=== PATIENT | female | born 1935 | race Caucasian/White ===

== ENCOUNTER 2021-08-01 12:40 | Outpatient (REF) | payer MEDICARE, OTHER, SELFPAY ==
[2021-08-01 13:36] LABS: COVID-19 Test Negative (Negative)
== END 2021-08-01 12:41 | disposition home or self-care (01) ==
LOC: HO.LAB 12:40
PROVIDERS: PCP Internal Medicine; Visit Provider Internal Medicine
DX: Z20.822 Contact with and (suspected) exposure to COVID-19 (principal)
CPT/HCPCS: 36415; 87635; C9803

== ENCOUNTER 2022-05-20 16:11 | Inpatient (IN) | payer MEDICARE, OTHER, SELFPAY ==
[2022-05-20] VITALS (7 sets, daily range): BP systolic 125–140; BP diastolic 32–37; PULSE 66–74; RESP 20–94; TEMP 36.5–36.6; O2SAT 20–94; BMI 28.9
--- NOTE | ~2022-05-20 | XR_ITS ---
EXAMINATION: XR CHEST CLINICAL INFORMATION: Shortness of breath. COMPARISON: Chest radiograph 05/21/2022. TECHNIQUE: Frontal view of the chest was obtained. FINDINGS: A left pectoral dual-lead pacer is noted. The cardiac silhouette is grossly normal in size. Dense left base airspace opacification blunting of left costophrenic sulcus is noted. Right upper lobe airspace opacity and patchy right base airspace opacities are noted. No pneumothoraces. Diffuse osteopenia. XR/XR chest 1V IMPRESSION: *Multifocal airspace disease the lungs unchanged compared with 05/21/2022 suspicious for pneumonia. *Unchanged moderate left pleural effusion.
--- NOTE | ~2022-05-20 | US_ITS ---
EXAMINATION: ULTRASOUND THORACENTESIS CLINICAL INFORMATION: Left pleural effusion, status post thoracentesis. COMPARISON: None TECHNIQUE: Multiple 2-D grayscale and color Doppler ultrasound images of the left chest were obtained for thoracentesis. US/US thoracentesis FINDINGS/IMPRESSION: Multiloculated fluid is seen in the visualized inferior left pleural cavity. 30 mL of bloody fluid was drained from the left pleural cavity. Procedure performed bedside by Dr. Haywood fluid was sent to lab for cytology and cell count. Please refer to the procedure report for more detailed findings.
--- NOTE | ~2022-05-20 | XR_ITS ---
EXAMINATION: XR chest 1V CLINICAL INFORMATION: Reason for Exam post left thoracentesis COMPARISON: Chest radiograph 05/20/2022 TECHNIQUE: One view of the chest XR/XR chest 1V FINDINGS/IMPRESSION: * Moderate left pleural effusion similar to prior. No pneumothorax. * Patchy multifocal parenchymal airspace opacities and left basilar consolidation, which may reflect comminution of multifocal infection and left basilar atelectasis * Unchanged cardiomediastinal silhouette, with a left chest wall dual lead cardiac pacemaker in place.
--- NOTE | ~2022-05-20 | CT_ITS ---
EXAMINATION: CT CHEST WITHOUT CONTRAST CLINICAL INFORMATION: hypoxic, LLL opacity, effusion vs consolidation . COMPARISON: Chest x-ray today. TECHNIQUE: Multidetector volumetric imaging was performed from the thoracic inlet through the lung bases without contrast. Sagittal and coronal reformatted images were obtained on the technologist workstation. Soft tissue and lung algorithms evaluated. Thick slab MIP images were performed to increase nodule conspicuity. This CT examination was performed using dose optimization techniques as appropriate, variously including the following: *Automated exposure control *Adjustment of mA and/or kV according to patient size (this includes techniques or standardized protocols for targeted exams where dose is matched to indication/reason for exam; i.e. extremities or head) *Use of iterative reconstruction technique DLP: 285 mGy-cm. FINDINGS: LUNG: Patchy bilateral airspace disease is seen with more confluent airspace changes in the lateral aspect of the right upper lobe and in the dependent aspect of the left lower lobe. More patchy areas ranging from groundglass opacity to more dense consolidation seen bilaterally as well. In the acute setting infectious causes would be strongly favored. Central airways are grossly unremarkable. MEDIASTINUM: Vascular calcification within the aorta and coronary vessels. Lead tips overlying the right atrium and right ventricle noted from the left pectoral pacemaker. PERICARDIUM/PLEURA: Small moderate left-sided pleural effusion. No significant pericardial effusion. THYROID/VISUALIZED LOWER NECK: Unremarkable. CHEST WALL/AXILLA: Unremarkable. VISUALIZED UPPER ABDOMEN: Unremarkable. BONES: Multilevel degenerative and chronic appearing changes in the spine CT/CT chest wo con IMPRESSION: Patchy bilateral airspace disease ranging from groundglass opacities to more dense areas of consolidation with air bronchograms. In the acute setting infectious etiology would be favored. There is associated small to moderate left-sided pleural effusion as well.
--- NOTE | ~2022-05-20 | XR_ITS ---
EXAMINATION: XR CHEST CLINICAL INFORMATION: Hypoxic. COMPARISON: 06/04/2014 chest radiograph. TECHNIQUE: Frontal view of the chest was obtained. FINDINGS: Bilateral patchy infiltrates are seen with a moderate-sized left pleural effusion. The heart and mediastinal structures are unremarkable. A left sided pacemaker appears in good position. XR/XR chest 1V IMPRESSION: Moderate left pleural effusion. Bilateral patchy infiltrates are nonspecific and could be cardiogenic however an infectious/inflammatory process cannot be excluded. Correlate clinically.
--- NOTE | 2022-05-20 16:23 | ED_ITS ---
HPI - SOB/Dyspnea General Chief Complaint: General Medical Stated Complaint: Difficulty Breathing Time Seen by Provider: 05/20/22 16:23 Source: patient and EMS Limitations: no limitations History of Present Illness HPI Narrative: 87 y/o female with history of CLL acalbrutinib, AFib no longer on anticoagulation, CKD III, moderate aortic stenosis, asthma, glaucoma, depression/anxiety, sick sinus syndrome s/p PPM, HFpEF, CAD HTN, HLD who presents to the ER from home via EMS with reports of shortness of breath started yesterday. Patient was just admitted to a short-term rehab from May 02 to May 19 after admission at [facility] for recurrent left-sided pleural effusion requiring thoracentesis x2. When she was at the rehab facility she was positive for COVID. she developed some mild hypoxia requiring 2 L nasal cannula and chest x-ray showed recurrent left-sided pleural effusion. She was restarted on her oral Lasix with good affect and was able to be weaned off of oxygen before discharge. Family reports when she got home from the facility yesterday she was so weak she could not stand up and get to the bathroom. She was also short of breath. Her breathing continued to decline so EMS was called today. MD elicited complaint: shortness of breath Pertinent past history: congestive heart failure and other ( Recurrent left- sided pleural effusion) Onset (ago): day(s) Context: recent illness Timing: constant Severity: severe Exacerbating factors: nothing Relieving factors: oxygen Known history of: asthma and congestive heart failure Associated symptoms: denies other symptoms Treatment prior to arrival: oxygen Related Data Home oxygen amount: none Home Medications Medication Instructions Recorded Confirmed acalabrutinib 100 mg capsule 100 mg PO Q12H 05/20/22 05/20/22 acetaminophen 325 mg tablet 650 mg PO Q6H PRN FEVER/PAIN 05/20/22 05/20/22 albuterol sulfate 90 mcg/actuation 2 puff inhalation Q8H PRN 05/20/22 05/20/22 aerosol inhaler (ProAir HFA) Shortness Of Breath Or Wheezing amlodipine 10 mg tablet 10 mg PO DAILY 05/20/22 05/20/22 atorvastatin 20 mg tablet 20 mg PO DAILY 05/20/22 05/20/22 carvedilol 6.25 mg tablet 6.25 mg PO BID 05/20/22 05/20/22 clonidine 0.2 mg/24 hr weekly 1 patch transdermal MO@1000 05/20/22 05/20/22 transdermal patch escitalopram oxalate 10 mg tablet 10 mg PO DAILY 05/20/22 05/20/22 furosemide 40 mg tablet (Lasix) 40 mg PO DAILY 05/20/22 05/20/22 latanoprost 0.005 % eye drops 1 drp ophthalmic (eye) BEDTIME 05/20/22 05/20/22 losartan 100 mg tablet 100 mg PO DAILY 05/20/22 05/20/22 nystatin 100,000 unit/mL oral 500,000 unit PO QID 05/20/22 05/20/22 suspension sennosides 8.6 mg tablet (senna) 8.6 mg PO DAILY PRN Constipation 05/20/22 05/20/22 tiotropium bromide 18 mcg capsule 1 cap inhalation DAILY 05/20/22 05/20/22 with inhalation device (Spiriva with HandiHaler) trazodone 50 mg tablet 25 mg PO BEDTIME 05/20/22 05/20/22 Allergies Allergy/AdvReac Type Severity Reaction Status Date / Time lisinopril [LISINOPRIL] Allergy Severe HIVES AND Unverified 08/15/20 15:30 SWELLING shellfish derived Allergy Severe HIVES AND Unverified 08/15/20 15:30 [SHELLFISH DERIVED] SWELLING Review of Systems Review of Systems: Constitutional: No Fever, No Chills ENT/Mouth: No sore throat, No Rhinorrhea, No Swallowing Difficulty Eyes: No Eye Pain, No Swelling, No Redness Cardiovascular: No Chest Pain, + SOB, + Orthopnea, No Edema Respiratory: No Cough, No Sputum, + Wheezing, + dyspnea Gastrointestinal: No Nausea, No Vomiting, No Diarrhea, No abdominal Pain Genitourinary: No Dysuria, No Urinary Frequency, No Hematuria Musculoskeletal: No joint pain, No Myalgias Skin: No Skin Lesions, No rash Neuro: + Weakness, No Numbness, No Dizziness, No Headache Psych: +Anxiety/Panic, No Depression Heme/Lymph: No Bruising, No Lymphadenopathy Endocrine: No Polyuria, No Polydipsia PMFSH Social History Social History Advance Directives: Yes Advance Directives Information Provided: No Advance Directives on File: No Physical Exam Vital Signs: Vital Signs: Last Vital Signs Temp 97.7 F 05/20/22 18:17 Pulse 66 05/20/22 19:58 Resp 20 05/20/22 19:58 BP 130/37 L 05/20/22 19:58 Pulse Ox 94 05/20/22 19:58 O2 Del Method 05/20/22 19:58 O2 Flow Rate 81.3 05/20/22 19:58 Oxygen Flow Rate 15 05/20/22 16:20 BMI result Body Mass Index 28.9 Appearance: Alert elderly female sitting up in the stretcher on NRB mask. No acute distress. IQUGMIUT. Eyes: Pupils equal, round and reactive to light. ENT: Pharynx normal. Neck: Normal inspection. Neck supple. CVS: Normal heart rate and rhythm. Pulses normal. Respiratory: Mild respiratory distress with RR low 20s. Breath sounds normal coarse and diminished at left base Abdomen: Soft and nontender. +BS x4 Skin: Skin warm and dry. Normal skin color. Normal skin turgor. No rashes. Extremities: No lower extremity edema. Neuro: Oriented X 3. No motor deficit. No sensory deficit. Generalized weakne ss noted, nonfocal Course Course Course Narrative: 87 yo female with history of AFib not on anticoagulation, HFpEF, HTN, HLD, CLL, recent admission to [facility] for recurrent pleural effusion s/p thoracentesis x2 and dispo to short term rehab 05/02-05/19 where course was complicated by COVID and recurrent effusion managed with diuresis who presents with 2 days of worsening SOB, found to be hypoxic at home and requiring 100% NRB. lung sounds are extremely diminished and coarse on the left, concerning for recurrent pleural effusion. Will place on high-flow via nasal cannula verses CPAP if she to lerates. RT called to the bedside. She is DNR DNI which is confirmed with her family at the bedside. Reevaluation(s) Reevaluation #1: Patient tolerating CPAP of 5 with FiO2 50%. Her records from recent [facility] admission have been reviewed. She has a left- sided pleural effusion dating back to 2018 which is transudative in nature. She was seen by pulmonology at [facility] and determined not to be a candidate for a VATS and pleurodesis given her age and comorbidities. She was managed with diuresis. She went a few years without requiring thoracentesis. During her admission at [facility] the pleural fluid was bloody in nature, 1100 cc drained from the left pleural space. Decision was made to stop apixaban. No mention of the pleural fluid culture being positive for bacteria however [place] [address] so she was treated for possible pneumonia with 5 days of antibiotics, oral steroids and DuoNebs. Reevaluation #2: CXR with left sided pleural effusion and scattered patchy opacities. WBC 19.6. BNP 283 with sodium 129, possibly hypervolemic. Of note patient has a chronic leukocytosis due to her CLL, may not be infectious. Will get CT of the chest for further evaluation of the lung parenchyma and possible dense consolidations left base. Given her leukocytosis and recent admission will treat for Hcap with vanco and cefepime. Will also give her a dose of IV Lasix, albumin (alb 2.7) for her elevated BNP and to aid in oxygen weaning. No role for IV fluids at this time. Contraindicated with her respiratory status. She is hemodynamically stable. Reevaluation #3: Patient noted to be positive for COVID-19. She recently tested positive earlier this month, family thinks it may have been on the or 8th while at rehab. She is fully vaccinated x4 wtih [employer] vaccines. CT scan reviewed and bilateral opacities are noted, could be COVID related vs bacterial PNA vs atypical pulmonary edema. She also has recurrent left sided pleural effusion. Given the recurrence of her pleural effusion and hypoxia would benefit from another thoracentesis vs PleurEx catheter. Stable on 5 CPAP 50%, asking to come off. Transitioned to HFNC 70%, breathing comfortably. Stable to hold off on drainage until tomorrow. Additional Reevaluation(s): Patient's clarified and states she actually contracted COVID during her [facility] admission and NOT during her rehab stay. Discharge paperwork reviewed - she was incidentally found to be COVID positive on 04/30 during routine COVID checks. She is immunocompromised so it is possible to see her symptoms prolong 20 days after initial diagnosis. Spoke with Hospitalist who will come evaluate the patient for admisison. MDM - SOB/Dyspnea Medical Records Attestation: I reviewed the patient's medical records. Lab Data Attestation: I reviewed the patient's lab results. Result diagrams: 05/20/22 16:56 05/20/22 16:56 Labs: Lab Results 05/20/22 05/20/22 05/20/22 Range/Units 16:55 16:56 16:56 WBC 19.6 H (4.8-10.8) X10*3/uL RBC 3.36 L (4.20-5.50) X10*6/uL Hgb 9.7 L (12.0-16.0) g/dl Hct 28.8 L (37.0-47.0) % MCV 85.7 (80.0-98.0) fL MCH 28.9 (27.0-33.0) pg MCHC 33.7 (31.0-35.0) g/dl RDW 14.2 (11.0-16.0) % Plt Count 193 (160-400) X10*3/uL MPV 12.6 H (9.4-12.3) fL Immature Gran % (Auto) 0.8 H (0.0-0.4) % Neut % (Auto) 78.7 H (45-73) % Lymph % (Auto) 19.0 L (20-40) % [place] % (Auto) 1.4 L (2-11) % Eos % (Auto) 0.0 (0-4) % Baso % (Auto) 0.1 (0-2) % Lymph # (Auto) 3.7 (1.2-4.9) X10*3/uL [place] # (Auto) 0.3 (0.1-1.2) X10*3/uL Eos # (Auto) 0.0 (0.0-0.4) X10*3/uL Baso # (Auto) 0.0 (0.0-0.2) X10*3/uL Abs Immat Gran (auto) 0.16 H (0.00-0.03) X10*3/uL Absolute Neuts (auto) 15.4 H (2.0-8.3) x10*3/uL Absolute Nucleated RBC 0.000 (0.0-0.012) X10*3/uL Nucleated RBC % (auto) 0.0 (0.0-0.2) /100WBC PT 14.2 H (9.9-13.0) SEC INR 1.2 H (0.9-1.1) APTT 24.8 (24.1-38.0) SEC Sodium (135-145) mmol/L Potassium (3.3-5.1) mmol/L Chloride (96-108) mmol/L Carbon Dioxide (22-29) mmol/L Anion Gap (12-20) BUN (9-16) mg/dL Creatinine (0.5-1.4) mg/dL Estim Creat Clear Calc Estimated GFR Random Glucose (60-115) mg/dL Lactic Acid 1.8 (0.5-2.0) mmol/L Calcium (8.4-10.2) mg/dL Magnesium (1.6-2.6) mg/dL Total Bilirubin (0.0-1.0) mg/dL Direct Bilirubin (0.0-0.5) mg/dL AST (5-31) U/L ALT (0-31) U/L Alkaline Phosphatase (39-117) U/L Troponin I High Sens (<3.5-17.0) ng/L B-Natriuretic Peptide (<100) pg/mL Total Protein (6.5-8.0) g/dL Albumin (3.5-5.0) g/dL Procalcitonin ng/mL COVID-19 (STEPHANIE) (Negative) COVID-19 Clin Com 05/20/22 05/20/22 05/20/22 Range/Units 16:56 16:56 16:56 WBC (4.8-10.8) X10*3/uL RBC (4.20-5.50) X10*6/uL Hgb (12.0-16.0) g/dl Hct (37.0-47.0) % MCV (80.0-98.0) fL MCH (27.0-33.0) pg MCHC (31.0-35.0) g/dl RDW (11.0-16.0) % Plt Count (160-400) X10*3/uL MPV (9.4-12.3) fL Immature Gran % (Auto) (0.0-0.4) % Neut % (Auto) (45-73) % Lymph % (Auto) (20-40) % [place] % (Auto) (2-11) % Eos % (Auto) (0-4) % Baso % (Auto) (0-2) % Lymph # (Auto) (1.2-4.9) X10*3/uL [place] # (Auto) (0.1-1.2) X10*3/uL Eos # (Auto) (0.0-0.4) X10*3/uL Baso # (Auto) (0.0-0.2) X10*3/uL Abs Immat Gran (auto) (0.00-0.03) X10*3/uL Absolute Neuts (auto) (2.0-8.3) x10*3/uL Absolute Nucleated RBC (0.0-0.012) X10*3/uL Nucleated RBC % (auto) (0.0-0.2) /100WBC PT (9.9-13.0) SEC INR (0.9-1.1) APTT (24.1-38.0) SEC Sodium 129 L (135-145) mmol/L Potassium 4.0 (3.3-5.1) mmol/L Chloride 93 L (96-108) mmol/L Carbon Dioxide 25 (22-29) mmol/L Anion Gap 15 (12-20) BUN 42 H (9-16) mg/dL Creatinine 1.23 (0.5-1.4) mg/dL Estim Creat Clear Calc 26.9 Estimated GFR 41 Random Glucose 268 H (60-115) mg/dL Lactic Acid (0.5-2.0) mmol/L Calcium 7.9 L (8.4-10.2) mg/dL Magnesium 2.1 (1.6-2.6) mg/dL Total Bilirubin 0.9 (0.0-1.0) mg/dL Direct Bilirubin 0.4 (0.0-0.5) mg/dL AST 31 (5-31) U/L ALT 73 H (0-31) U/L Alkaline Phosphatase 104 (39-117) U/L Troponin I High Sens 35.1 H (<3.5-17.0) ng/L B-Natriuretic Peptide 283 H (<100) pg/mL Total Protein 4.9 L (6.5-8.0) g/dL Albumin 2.7 L (3.5-5.0) g/dL Procalcitonin 0.31 ng/mL COVID-19 (STEPHANIE) (Negative) COVID-19 Clin Com 05/20/22 05/20/22 Range/Units 16:57 20:27 WBC (4.8-10.8) X10*3/uL RBC (4.20-5.50) X10*6/uL Hgb (12.0-16.0) g/dl Hct (37.0-47.0) % MCV (80.0-98.0) fL MCH (27.0-33.0) pg MCHC (31.0-35.0) g/dl RDW (11.0-16.0) % Plt Count (160-400) X10*3/uL MPV (9.4-12.3) fL Immature Gran % (Auto) (0.0-0.4) % Neut % (Auto) (45-73) % Lymph % (Auto) (20-40) % [place] % (Auto) (2-11) % Eos % (Auto) (0-4) % Baso % (Auto) (0-2) % Lymph # (Auto) (1.2-4.9) X10*3/uL [place] # (Auto) (0.1-1.2) X10*3/uL Eos # (Auto) (0.0-0.4) X10*3/uL Baso # (Auto) (0.0-0.2) X10*3/uL Abs Immat Gran (auto) (0.00-0.03) X10*3/uL Absolute Neuts (auto) (2.0-8.3) x10*3/uL Absolute Nucleated RBC (0.0-0.012) X10*3/uL Nucleated RBC % (auto) (0.0-0.2) /100WBC PT (9.9-13.0) SEC INR (0.9-1.1) APTT (24.1-38.0) SEC Sodium (135-145) mmol/L Potassium (3.3-5.1) mmol/L Chloride (96-108) mmol/L Carbon Dioxide (22-29) mmol/L Anion Gap (12-20) BUN (9-16) mg/dL Creatinine (0.5-1.4) mg/dL Estim Creat Clear Calc Estimated GFR Random Glucose (60-115) mg/dL Lactic Acid (0.5-2.0) mmol/L Calcium (8.4-10.2) mg/dL Magnesium (1.6-2.6) mg/dL Total Bilirubin (0.0-1.0) mg/dL Direct Bilirubin (0.0-0.5) mg/dL AST (5-31) U/L ALT (0-31) U/L Alkaline Phosphatase (39-117) U/L Troponin I High Sens 32.3 H (<3.5-17.0) ng/L B-Natriuretic Peptide (<100) pg/mL Total Protein (6.5-8.0) g/dL Albumin (3.5-5.0) g/dL Procalcitonin ng/mL COVID-19 (STEPHANIE) Positive A (Negative) COVID-19 Clin Com See Note ECG Data Attestation: I personally reviewed and interpreted this ECG as follows: ECG interpretation date: 05/20/22 ECG interpretation time: 19:58 Interpretation: Sinus rhythm with premature atrial complexes, heart rate 61 beats per minute, normal [place] interval, no ST segment elevations. ST and T-wave abnormality in V5- V6 Critical Care Time Critical Care Time Critical Care Time: Yes Total Critical Care Time: 45 Attestation: I have personally provided critical care time exclusive of time spent on separately billable procedures. Time includes review of lab data, radiology results, discussion with consultants, and monitoring for potential decompensation. Intervention performed as documented. Discharge Plan Discharge Clinical Impression: Acute respiratory failure with hypoxia, Recurrent left pleural effusion, COVID- 19 Patient Disposition: Admitted As Inpatient
--- NOTE | 2022-05-20 16:29 | ECG_ITS ---
Test Reason : DYSPNEA Blood Pressure : / mmHG Vent. Rate : 061 BPM Atrial Rate : 061 BPM P-R Int : 170 ms QRS Dur : 084 ms QT Int : 438 ms P-R-T Axes : 013 018 134 degrees QTc Int : 440 ms Sinus rhythm with Premature atrial complexes ST & T wave abnormality, consider lateral ischemia Abnormal ECG When compared with ECG of 04-JUN-2014 02:17, Premature atrial complexes are now Present T wave inversion now evident in Lateral leads Referred By: Chanel Carty Electronically Signed By:ANITA DOMINGUEZ MD
[2022-05-20 17:05] LABS: MANUAL DIFF FLAG NO
[2022-05-20 17:09] LABS: Basophils Percent Auto 0.1 % (0-2); Hematocrit 28.8 % (37.0-47.0); Hemoglobin 9.7 g/dl (12.0-16.0); Imm Gran Abs Auto 0.16 X10*3/uL (0.00-0.03); Imm Gran Pct Auto 0.8 % (0.0-0.4); Lymphocytes Absolute Auto 3.7 X10*3/uL (1.2-4.9); Mean Corpuscular HGB Conc 33.7 g/dl (31.0-35.0); Mean Corpuscular Hemoglobin 28.9 pg (27.0-33.0); Mean Corpuscular Volume 85.7 fL (80.0-98.0); Mean Platelet Volume 12.6 fL (9.4-12.3); Monocytes Absolute Auto 0.3 X10*3/uL (0.1-1.2); Monocytes Percent Auto 1.4 % (2-11); Neutrophils Absolute Auto 15.4 x10*3/uL (2.0-8.3); Neutrophils Percent Auto 78.7 % (45-73); Platelet Count 193 X10*3/uL (160-400); Red Blood Count 3.36 X10*6/uL (4.20-5.50); Red Cell Distribution Width 14.2 % (11.0-16.0); White Blood Count 19.6 X10*3/uL (4.8-10.8)
[2022-05-20 17:12] LABS: INTERNATIONAL NORM RATIO 1.2 (0.9-1.1); Prothrombin Time 14.2 SEC (9.9-13.0)
[2022-05-20 17:14] LABS: COVID-19 Test Positive (Negative); IDNOW Serial# 16C4AD1C
[2022-05-20 17:15] LABS: Partial Thromboplastin Time 24.8 SEC (24.1-38.0)
[2022-05-20 17:21] LABS: Lactic Acid 1.8 mmol/L (0.5-2.0)
[2022-05-20 17:26] LABS: Alanine Aminotransferase 73 U/L (0-31); Albumin Level 2.7 g/dL (3.5-5.0); Alkaline Phosphatase 104 U/L (39-117); Anion Gap 15 (12-20); Aspartate Amino Transferase 31 U/L (5-31); Bilirubin Direct 0.4 mg/dL (0.0-0.5); Bilirubin Total 0.9 mg/dL (0.0-1.0); Blood Urea Nitrogen 42 mg/dL (9-16); Calcium 7.9 mg/dL (8.4-10.2); Carbon Dioxide 25 mmol/L (22-29); Chloride 93 mmol/L (96-108); Creatinine Clr Calc Pharmacy 26.9; Estimated Glomerular Filt Rate 41; Glucose Random 268 mg/dL (60-115); Magnesium 2.1 mg/dL (1.6-2.6); Sodium 129 mmol/L (135-145); Total Protein 4.9 g/dL (6.5-8.0)
[2022-05-20 17:30] LABS: B Type Natriuretic Peptide 283 pg/mL (<100); Troponin-I High Sensitivity 35.1 ng/L (<3.5-17.0)
--- NOTE | 2022-05-20 17:39 | PHA.MEDREC ---
MED REC COMPLETE, NO ISSUES Pharmacy Consult ? Medication Reconciliation Pharmacy has completed the medication reconciliation.
[2022-05-20] MEDS: cefEPime HCl 2 GM in 0.9 % Sodium Chloride 50 ML IV (17:52)
[2022-05-20] MEDS: vancomycin HCL 1,000 MG, vancomycin HCL 750 MG in 0.9 % Sodium Chloride 500 ML 267.5 MG IV (17:55)
--- NOTE | 2022-05-20 18:32 | PC.NURSE ---
pt came n with respiratory distress xray showed consolidation on left lung. Pt placed on cpap, waiting on labs and pt pending admission
[2022-05-20] MEDS: methylPREDNISolone Sod Succ 40 MG/ML VIAL IVPUSH (19:38)
[2022-05-20] MEDS: Furosemide 40 MG/4 ML VIAL IVPUSH (19:38)
[2022-05-20] MEDS: Albumin Human 25 % 100 ML IV (19:57)
[2022-05-20 20:42] LABS: Procalcitonin 0.31 ng/mL
[2022-05-20 20:54] LABS: Troponin-I High Sensitivity 32.3 ng/L (<3.5-17.0)
--- NOTE | 2022-05-20 21:27 | MHC.CM.PN ---
Received [facility] progress note from [facility]. Was d/c from [facility] to [facility], then home. [facility] had first visit today. Pt very SOB. Sent to [facility] [place] [facility]. Pending admission. CM to follow for d/c needs.
--- NOTE | 2022-05-20 21:53 | P.HPHOSP_ITS ---
History of Present Illness Date of Service: 05/20/22 Chief Complaint: Shortness of breath 87-year-old female with a past medical history of hypertension, hyperlipidemia, CAD, CHF-diastolic, AFib-not on anticoagulation, SSS s/p pacemaker, moderate aortic stenosis, CKD stage 3, CLL on Acalbrutinib, anxiety, depression, asthma, recent admission to the [facility], [place] in March of 2022 for hemorrhagic pleural effusion-status post therapeutic tap; presented to the hospital today with a chief complaint of shortness of breath. Most of the history obtained from the patient and patient's family at bedside. Reportedly patient had an admission in March at [facility], [place] for pleural effusion which was found to be hemorrhagic status post 1 L of pleural tap; also noted to be COVID-19 positive; patient was subsequently discharged to the rehab and from the rehab patient was discharged home yesterday. Since she came home yesterday patient has been having shortness of breath which has been gradually worsening. Also complaining of cough with yellow sputum production. Subsequently EMS was called in today and in the EMS had patient was noted to be saturating 70%; placed on supplemental oxygen and brought to the ER for further evaluation. Denies any chest pain or palpitations. Denies any nausea vomiting or diarrhea. Review of all other systems is negative except mentioned above ER course: Per ER team patient on presentation noted to be in mild respiratory distress; placed on CPAP at low positive pressures. Subsequently patient was transitioned to high flow nasal cannula; patient was breathing in comfortably and significantly improved respiratory status. CT chest showed bilateral pulmonary opacities; also noted to have moderate right pleural effusion. Also mentioned that less concern for hemorrhagic bleed as patient's hemoglobin was noted to be 10.0 when she left [facility] [place] and today her hemoglobin noted to be 9.7. Also mentioned patient has had discussions for pleurodesis at [facility] [place] but procedure was held given comorbidities. PMFSH Pertinent family history: Reviewed Social History Advance Directives: Yes Advance Directives Information Provided: No Advance Directives on File: No Meds Allergies Allergy/AdvReac Type Severity Reaction Status Date / Time lisinopril [LISINOPRIL] Allergy Severe HIVES AND Unverified 08/15/20 15:30 SWELLING shellfish derived Allergy Severe HIVES AND Unverified 08/15/20 15:30 [SHELLFISH DERIVED] SWELLING Active Medications: Current Medications Acetaminophen (Acetaminophen 325 Mg Tablet) 650 mg PO Q6H PRN PRN Reason: Pain, Mild (Pain Scale 1-3) Dexamethasone Sodium Phosphate (Dexamethasone Sod Phosphate 4 Mg/Ml Vial) 6 mg IVPUSH DAILY [facility] Vancomycin HCl 1,000 mg/ (Sodium Chloride) 270 mls @ 270 mls/hr IV Q12H [facility] Piperacillin Sod/Tazobactam (Sod 3.375 gm/ Sodium Chloride) 50 mls @ 100 mls/hr IV Q6H [facility] Melatonin (Melatonin 3 Mg Tablet) 6 mg PO BEDTIME PRN PRN Reason: Insomnia Morphine Sulfate (Morphine Sulfate 4 Mg/Ml Cartridge) 1 mg IVPUSH Q4H PRN; Protocol PRN Reason: Pain, SOB Pharmacy Consult (Consult Rx Perform Med Rec) 1 each MISCELLANE ONCE PRN PRN Reason: Consult order Pharmacy Consult (Consult Rx Vancomycin Dosing) 1 each MISCELLANE DAILY PRN PRN Reason: Consult order Senna (Sennosides 8.6 Mg Tablet) 17.2 mg PO BEDTIME PRN PRN Reason: Constipation Sodium Chloride (0.9 % Sodium Chloride Flush 3 Ml Syringe) 3 ml IVFLUSH QSHIFT [facility] Home Medications Medication Instructions Recorded Confirmed Last Taken Type acalabrutinib 100 mg capsule 100 mg PO Q12H 05/20/22 05/20/22 Unknown History acetaminophen 325 mg tablet 650 mg PO Q6H PRN FEVER/PAIN 05/20/22 05/20/22 Unknown History albuterol sulfate 90 mcg/actuation 2 puff inhalation Q8H PRN 05/20/22 05/20/22 U nknown History aerosol inhaler (ProAir HFA) Shortness Of Breath Or Wheezing amlodipine 10 mg tablet 10 mg PO DAILY 05/20/22 05/20/22 Unknown History atorvastatin 20 mg tablet 20 mg PO DAILY 05/20/22 05/20/22 Unknown History carvedilol 6.25 mg tablet 6.25 mg PO BID 05/20/22 05/20/22 Unknown History clonidine 0.2 mg/24 hr weekly 1 patch transdermal MO@1000 05/20/22 05/20/22 Unknown History transdermal patch escitalopram oxalate 10 mg tablet 10 mg PO DAILY 05/20/22 05/20/22 Unknown History furosemide 40 mg tablet (Lasix) 40 mg PO DAILY 05/20/22 05/20/22 Unknown History latanoprost 0.005 % eye drops 1 drp ophthalmic (eye) BEDTIME 05/20/22 05/20/22 Unknown History losartan 100 mg tablet 100 mg PO DAILY 05/20/22 05/20/22 Unknown History nystatin 100,000 unit/mL oral 500,000 unit PO QID 05/20/22 05/20/22 Unknown History suspension sennosides 8.6 mg tablet (senna) 8.6 mg PO DAILY PRN Constipation 05/20/22 05/20/22 Unknown History tiotropium bromide 18 mcg capsule 1 cap inhalation DAILY 05/20/22 05/20/22 Unknown History with inhalation device (Spiriva with HandiHaler) trazodone 50 mg tablet 25 mg PO BEDTIME 05/20/22 05/20/22 Unknown History Physical Exam Vital Signs and Narrative: Vital Signs: Last Vital Signs Temp 97.7 F 05/20/22 18:17 Pulse 66 05/20/22 19:58 Resp 20 05/20/22 19:58 BP 130/37 L 05/20/22 19:58 Pulse Ox 94 05/20/22 19:58 O2 Del Method 05/20/22 19:58 O2 Flow Rate 81.3 05/20/22 19:58 Oxygen Flow Rate 15 05/20/22 16:20 BMI result Body Mass Index 28.9 Gen: Appears be in no acute distress. Able to speak in full sentences. On supplemental oxygen. HEENT: NCAT, Moist mucosa. Pulmonary: Coarse breath sounds; CVS: Normal S1-S2; murmur present Abdomen: BS+, Soft, Nontender Extremities: Warm well perfused Neuro: Alert and awake. Moves all extremities equally. Results Labs CBC and Chem 7: 05/20/22 16:56 05/20/22 16:56 Labs: Laboratory Results - last 24 hr 05/20/22 05/20/22 05/20/22 16:55 16:56 16:56 MCV 85.7 MCH 28.9 MCHC 33.7 RDW 14.2 Plt Count 193 MPV 12.6 H Immature Gran % (Auto) 0.8 H Neut % (Auto) 78.7 H Lymph % (Auto) 19.0 L Carver % (Auto) 1.4 L Eos % (Auto) 0.0 Baso % (Auto) 0.1 Lymph # (Auto) 3.7 Carver # (Auto) 0.3 Eos # (Auto) 0.0 Baso # (Auto) 0.0 Abs Immat Gran (auto) 0.16 H Absolute Neuts (auto) 15.4 H Absolute Nucleated RBC 0.000 Nucleated RBC % (auto) 0.0 PT 14.2 H INR 1.2 H APTT 24.8 Anion Gap Estim Creat Clear Calc Estimated GFR Random Glucose Lactic Acid 1.8 Calcium Magnesium Total Bilirubin Direct Bilirubin AST ALT Alkaline Phosphatase Troponin I High Sens B-Natriuretic Peptide Total Protein Albumin Procalcitonin COVID-19 (STEPHANIE) COVID-19 Clin Com 05/20/22 05/20/22 05/20/22 16:56 16:56 16:56 MCV MCH MCHC RDW Plt Count MPV Immature Gran % (Auto) Neut % (Auto) Lymph % (Auto) Carver % (Auto) Eos % (Auto) Baso % (Auto) Lymph # (Auto) Carver # (Auto) Eos # (Auto) Baso # (Auto) Abs Immat Gran (auto) Absolute Neuts (auto) Absolute Nucleated RBC Nucleated RBC % (auto) PT INR APTT Anion Gap 15 Estim Creat Clear Calc 26.9 Estimated GFR 41 Random Glucose 268 H Lactic Acid Calcium 7.9 L Magnesium 2.1 Total Bilirubin 0.9 Direct Bilirubin 0.4 AST 31 ALT 73 H Alkaline Phosphatase 104 Troponin I High Sens 35.1 H B-Natriuretic Peptide 283 H Total Protein 4.9 L Albumin 2.7 L Procalcitonin 0.31 COVID-19 (STEPHANIE) COVID-19 Clin Com 05/20/22 05/20/22 16:57 20:27 MCV MCH MCHC RDW Plt Count MPV Immature Gran % (Auto) Neut % (Auto) Lymph % (Auto) Carver % (Auto) Eos % (Auto) Baso % (Auto) Lymph # (Auto) Carver # (Auto) Eos # (Auto) Baso # (Auto) Abs Immat Gran (auto) Absolute Neuts (auto) Absolute Nucleated RBC Nucleated RBC % (auto) PT INR APTT Anion Gap Estim Creat Clear Calc Estimated GFR Random Glucose Lactic Acid Calcium Magnesium Total Bilirubin Direct Bilirubin AST ALT Alkaline Phosphatase Troponin I High Sens 32.3 H B-Natriuretic Peptide Total Protein Albumin Procalcitonin COVID-19 (STEPHANIE) Positive A COVID-19 Clin Com See Note Imaging Radiologist's Impressions: Impressions Chest X-Ray 05/20/22 17:22 IMPRESSION: Moderate left pleural effusion. Bilateral patchy infiltrates are nonspecific and could be cardiogenic however an infectious/inflammatory process cannot be excluded. Correlate clinically. Chest CT 05/20/22 17:55 IMPRESSION: Patchy bilateral airspace disease ranging from groundglass opacities to more dense areas of consolidation with air bronchograms. In the acute setting infectious etiology would be favored. There is associated small to moderate left-sided pleural effusion as well. Assessment and Plan (1) Acute respiratory failure with hypoxia: Status: Acute (2) Recurrent left pleural effusion: Status: Acute (3) COVID-19: Status: Acute Plan 87-year-old female with a past medical history of hypertension, hyperlipidemia, CAD, CHF-diastolic, AFib-not on anticoagulation, SSS s/p pacemaker, moderate aortic stenosis, CKD stage 3, CLL on Acalbrutinib, anxiety, depression, asthma, recent admission to the [facility] [place] in March of 2022 for hemorrhagic pleural effusion-status post therapeutic tap; presented to the hospital today with a chief complaint of shortness of breath/hypoxia/COVID-19 positive. Admitted for following Acute hypoxic respiratory failure: In the setting of COVID-19 pneumonia/moderate pleural effusion. Patient was briefly on CPAP on presentation. Currently transitioned to high-flow nasal cannula. Currently not in respiratory distress. Supportive care. COVID-19 pneumonia: Patient is COVID-19 vaccinated with Pfizer vaccine. Current CT scan showed patchy opacities. Will give the patient on Decadron 6 mg IV daily Continue IV vancomycin and Zosyn Id consult for further recommendations Moderate pleural effusion: Recurrent. Patient had recent admission to the [facility] [place] for pleural effusion status post therapeutic tap-obtained 1 L of bloody tap. IR consult was placed. Pulmonology follow-up Patient received IV Lasix in the ER. History of diastolic CHF: Continue home Lasix. History of hypertension: Patient blood pressure currently on the soft side. Hold home losartan, amlodipine. Reduced home carvedilol to 3.125 mg b.i.d. with holding parameters History of anxiety/depression: Continue home clonidine/escitalopram History of glaucoma: Continue home latanoprost History of CLL: Continue home Acalabrutinib. History of AFib: Patient currently not on anticoagulation. Recently discon tinued at [facility] [place] given bloody pleural effusion. DVT prophylaxis: SCD boots. Avoiding pharmacologic agent for now, given concerns for recent hemorrhagic pleural effusion. Code status: DNR/DNI. Confirmed with the patient's family at bedside. Quality Stroke Does the patient have a stroke diagnosis?: No VTE Prior VTE?: No VTE Risk Level:: Medical - moderate - high VTE Device Contraindication: N/A - Device Ordered VTE Drug Contraindication: Treatment Not Indicated
--- NOTE | 2022-05-20 22:18 | HE.PHANOTE ---
Vanco 1750 mg given in ED, following with at least one dose of 1 gm q24h to bring auc >500, pending random trough-dose to be adjust if needed
[2022-05-21] VITALS (12 sets, daily range): BP systolic 118–155; BP diastolic 42–47; PULSE 65–97; RESP 16–25; TEMP 36.1–36.8; O2SAT 84–94
[2022-05-21] MEDS: 0.9 % Sodium Chloride Flush 3 ML SYRINGE IVFLUSH ×2 (00:18→23:11)
[2022-05-21] MEDS: Piperacillin Sodium/Tazobactam 2.25 GM in 0.9 % Sodium Chloride 50 ML IV ×5 (00:18→23:11)
--- NOTE | 2022-05-21 05:08 | PC.NURSE ---
pt intermittently sleeping. high flow NC increased by respiratory. pt yelling out that she does not want to be alone and she want to get out of here. pt reassured with minimal effect.
[2022-05-21 05:10] LABS: Basophils Percent Auto 0.1 % (0-2); Hemoglobin 9.1 g/dl (12.0-16.0); Imm Gran Abs Auto 0.12 X10*3/uL (0.00-0.03); Imm Gran Pct Auto 0.7 % (0.0-0.4); Lymphocytes Absolute Auto 2.4 X10*3/uL (1.2-4.9); Lymphocytes Percent Auto 14.1 % (20-40); MANUAL DIFF FLAG SCAN; Mean Corpuscular HGB Conc 33.7 g/dl (31.0-35.0); Mean Corpuscular Hemoglobin 28.8 pg (27.0-33.0); Mean Corpuscular Volume 85.4 fL (80.0-98.0); Mean Platelet Volume 12.5 fL (9.4-12.3); Monocytes Absolute Auto 0.2 X10*3/uL (0.1-1.2); Monocytes Percent Auto 0.9 % (2-11); Neutrophils Absolute Auto 14.2 x10*3/uL (2.0-8.3); Neutrophils Percent Auto 84.2 % (45-73); Platelet Count 172 X10*3/uL (160-400); Red Blood Count 3.16 X10*6/uL (4.20-5.50); Red Cell Distribution Width 14.2 % (11.0-16.0); SCAN SMEAR FLAG 1; White Blood Count 16.9 X10*3/uL (4.8-10.8)
[2022-05-21 05:27] LABS: Anion Gap 16 (12-20); Blood Urea Nitrogen 40 mg/dL (9-16); Carbon Dioxide 23 mmol/L (22-29); Chloride 98 mmol/L (96-108); Creatinine Clr Calc Pharmacy 29.5; Estimated Glomerular Filt Rate 46; Glucose Random 286 mg/dL (60-115); Potassium 4.1 mmol/L (3.3-5.1); Sodium 133 mmol/L (135-145)
[2022-05-21 05:37] LABS: SLIDE REVIEW VERIFIED
--- NOTE | 2022-05-21 07:52 | HE.PHANOTE ---
Vancomycin Dosing Addendum Patient received a loading dose of 1750mg 05/20/22. Maintenance dose is 1000mg Q24. We will stick with current regimen as patients renal function has not changed since yesterday. Random level in for 05/22/2022 @1600. Predicted AUC 533mg/L/hr
[2022-05-21] MEDS: dexAMETHasone sod phosphate 4 MG/ML VIAL 6 MG IVPUSH (09:02)
[2022-05-21] MEDS: Morphine Sulfate 4 MG/ML CARTRIDGE 1 MG IVPUSH ×2 (09:03→19:16)
[2022-05-21] MEDS: carvediloL 3.125 MG TABLET PO ×2 (09:08→20:46)
[2022-05-21] MEDS: Atorvastatin Calcium 20 MG TABLET PO (09:08)
[2022-05-21] MEDS: Furosemide 40 MG TABLET PO (09:08)
--- NOTE | 2022-05-21 09:52 | PM.CNPUL ---
History of Present Illness History of Present Illness Consult date: 05/21/22 Reason for consult: hypoxemia and pleural effusion Chief complaint: Acute Hypoxic respiratory failure Narrative: I was us to see this patient for pulmonary consult, and advised. The patient is not able to give any clear information, except that she is short of breath. Most of the information is obtained from the medical records. She is a 87 years old female in known case of multiple medical problems, including CLL. Being treated chronically with acalabrutinib , hypertension, atrial fibrillation, Sick sinus syndrome, has demand pacemaker, coronary artery disease aortic stenosis chronic kidney disease chronic anxiety and depression and most likely has some degree of chronic obstructive pulmonary disease. It is reported that in March of this year she was admitted at [facility], tested positive for COVID-19 had a large pleural effusion on the left side, which was drained and found to be hemorrhagic. Patient spent says a few weeks at a rehab facility. Discharge home just 1 day earlier and then brought to the emergency room over here because of increased shortness of breath. Fever or chills not reported. Should be noted that patient is not on anticoagulation. Arrival to the emergency room patient was quite hypoxemic, she is requiring high-flow O2. Chest x-ray and CT scan of the chest are grossly abnormal. Review of Systems Review of Systems: Yes Unobtainable due to mental condition Meds Allergies Allergy/AdvReac Type Severity Reaction Status Date / Time lisinopril [LISINOPRIL] Allergy Severe HIVES AND Unverified 08/15/20 15:30 SWELLING shellfish derived Allergy Severe HIVES AND Unverified 08/15/20 15:30 [SHELLFISH DERIVED] SWELLING Active Medications: Current Medications Acetaminophen (Acetaminophen 325 Mg Tablet) 650 mg PO Q6H PRN PRN Reason: Pain, Mild (Pain Scale 1-3) Albuterol Sulfate (Albuterol Sulfate 90 Mcg 8 Gm Inhaler) 2 puff INHALE Q8H PRN PRN Reason: Shortness Of Breath Or Wheezing Atorvastatin Calcium (Atorvastatin Calcium 20 Mg Tablet) 20 mg PO DAILY [facility] Last Admin: 05/21/22 09:08 Dose: 20 mg Carvedilol (Carvedilol 3.125 Mg Tablet) 3.125 mg PO BID [facility]; Protocol Last Admin: 05/21/22 09:08 Dose: 3.125 mg Clonidine (Clonidine 0.2 Mg Patch.Tdwk) 0.2 mg TRANSDERMA MO@1000 [facility]; Protocol Dexamethasone Sodium Phosphate (Dexamethasone Sod Phosphate 4 Mg/Ml Vial) 6 mg IVPUSH DAILY [facility] Last Admin: 05/21/22 09:02 Dose: 6 mg Escitalopram Oxalate (Escitalopram Oxalate 10 Mg Tablet) 10 mg PO DAILY [facility] Furosemide (Furosemide 40 Mg Tablet) 40 mg PO DAILY [facility]; Protocol Last Admin: 05/21/22 09:08 Dose: 40 mg Vancomycin HCl 1,000 mg/ (Sodium Chloride) 270 mls @ 270 mls/hr IV Q24H [facility] Piperacillin Sod/Tazobactam (Sod 2.25 gm/ Sodium Chloride) 50 mls @ 100 mls/hr IV Q6H [facility] Last Infusion: 05/21/22 05:46 Dose: Infused Latanoprost (Latanoprost 0.005 % Ophth Silvia 2.5 Ml Drops) 1 drop EYE-BOTH BEDTIME [facility] Losartan Potassium (Losartan Potassium 50 Mg Tablet) 100 mg PO DAILY [facility]; Protocol Melatonin (Melatonin 3 Mg Tablet) 6 mg PO BEDTIME PRN PRN Reason: Insomnia Morphine Sulfate (Morphine Sulfate 4 Mg/Ml Cartridge) 1 mg IVPUSH Q4H PRN; Protocol PRN Reason: Pain, SOB Last Admin: 05/21/22 09:03 Dose: 1 mg Non-Formulary Medication (Acalabrutinib) 100 mg PO Q12H [facility] Nystatin (Nystatin Oral Susp 500,000 Unit/5 Ml Oral.Susp) 500,000 unit PO QID [facility]; Protocol Last Admin: 05/21/22 09:20 Dose: Not Given Pharmacy Consult (Consult Rx Perform Med Rec) 1 each MISCELLANE ONCE PRN PRN Reason: Consult order Pharmacy Consult (Consult Rx Vancomycin Dosing) 1 each MISCELLANE DAILY PRN PRN Reason: Consult order Senna (Sennosides 8.6 Mg Tablet) 17.2 mg PO BEDTIME PRN PRN Reason: Constipation Senna (Sennosides 8.6 Mg Tablet) 8.6 mg PO DAILY PRN PRN Reason: Constipation Sodium Chloride (0.9 % Sodium Chloride Flush 3 Ml Syringe) 3 ml IVFLUSH QSHIFT [facility] Last Admin: 05/21/22 09:20 Dose: Not Given Tiotropium [place]ayer (Tiotropium [place] 18 Mcg Cap.W.Dev) 1 puff INHALE RDAILY [facility] Last Admin: 05/21/22 08:23 Dose: Not Given Trazodone HCl (Trazodone Hcl 25 Mg Halftab) 25 mg PO BEDTIME [facility] Home Medications Medication Instructions Recorded Confirmed Last Taken Type acalabrutinib 100 mg capsule 100 mg PO Q12H 05/20/22 05/20/22 Unknown History acetaminophen 325 mg tablet 650 mg PO Q6H PRN FEVER/PAIN 05/20/22 05/20/22 Unknown History albuterol sulfate 90 mcg/actuation 2 puff inhalation Q8H PRN 05/20/22 05/20/22 Unknown History aerosol inhaler (ProAir HFA) Shortness Of Breath Or Wheezing amlodipine 10 mg tablet 10 mg PO DAILY 05/20/22 05/20/22 Unknown History atorvastatin 20 mg tablet 20 mg PO DAILY 05/20/22 05/20/22 Unknown History carvedilol 6.25 mg tablet 6.25 mg PO BID 05/20/22 05/20/22 Unknown History clonidine 0.2 mg/24 hr weekly 1 patch transdermal MO@1000 05/20/22 05/20/22 Unknown History transdermal patch escitalopram oxalate 10 mg tablet 10 mg PO DAILY 05/20/22 05/20/22 Unknown History furosemide 40 mg tablet (Lasix) 40 mg PO DAILY 05/20/22 05/20/22 Unknown History latanoprost 0.005 % eye drops 1 drp ophthalmic (eye) BEDTIME 05/20/22 05/20/22 Unknown History losartan 100 mg tablet 100 mg PO DAILY 05/20/22 05/20/22 Unknown History nystatin 100,000 unit/mL oral 500,000 unit PO QID 05/20/22 05/20/22 Unknown History suspension sennosides 8.6 mg tablet (senna) 8.6 mg PO DAILY PRN Constipation 05/20/22 05/20/22 Unknown History tiotropium bromide 18 mcg capsule 1 cap inhalation DAILY 05/20/22 05/20/22 Unknown History with inhalation device (Spiriva with HandiHaler) trazodone 50 mg tablet 25 mg PO BEDTIME 05/20/22 05/20/22 Unknown History Physical Exam Vital Signs: Vital Signs: Last Vital Signs Temp 97.0 F 05/21/22 06:23 Pulse 70 05/21/22 06:23 Resp 17 06/23/22 06:23 BP 155/42 H 05/21/22 06:23 Pulse Ox 89 L 05/21/22 06:23 O2 Del Method 05/21/22 06:23 O2 Flow Rate 90 05/21/22 05:15 FiO2 90 05/21/22 06:23 Oxygen Flow Rate 15 05/20/22 16:20 BMI result Body Mass Index 28.9 The patient is elderly, quite anxious at this time, she is on high-flow O2, and does not seem to be in any acute distress. Respiratory rate 18 Temperature is 97 degrees F. Throat examination does not show any acute infection. Neck examination, trachea in midline no jugular venous distension, no lymphadenopathy. Chest examination is difficult but on percussion note there is dullness over the left lower lobe as well as right base. There are inspiratory crepitations over the both lower lobes, breath sounds are much decreased over the left lower lobe. Cardiac arevalo she is in atrial fib ventricular rate well controlled, she has pacemaker in the left pectoral area, no murmur or gallop. Results Laboratory Findings CBC and BMP: 05/21/22 04:28 05/21/22 04:28 ABG, PT/INR, D-dimer: PT/INR, D-dimer PT 14.2 SEC (9.9-13.0) H 05/20/22 16:56 INR 1.2 (0.9-1.1) H 05/20/22 16:56 Abnormal lab findings: Abnormal Labs 05/20/22 05/20/22 05/20/22 16:56 16:56 16:56 WBC 19.6 H RBC 3.36 L Hgb 9.7 L Hct 28.8 L MPV 12.6 H Immature Gran % (Auto) 0.8 H Neut % (Auto) 78.7 H Lymph % (Auto) 19.0 L [place] % (Auto) 1.4 L Abs Immat Gran (auto) 0.16 H Absolute Neuts (auto) 15.4 H PT 14.2 H INR 1.2 H Sodium 129 L Chloride 93 L BUN 42 H Random Glucose 268 H Calcium 7.9 L ALT 73 H Troponin I High Sens B-Natriuretic Peptide Total Protein 4.9 L Albumin 2.7 L COVID-19 (STEPHANIE) 05/20/22 05/20/22 05/20/22 16:56 16:57 20:27 WBC RBC Hgb Hct MPV Immature Gran % (Auto) Neut % (Auto) Lymph % (Auto) [place] % (Auto) Abs Immat Gran (auto) Absolute Neuts (auto) PT INR Sodium Chloride BUN Random Glucose Calcium ALT Troponin I High Sens 35.1 H 32.3 H B-Natriuretic Peptide 283 H Total Protein Albumin COVID-19 (STEPHANIE) Positive A 05/21/22 05/21/22 04:28 04:28 WBC 16.9 H RBC 3.16 L Hgb 9.1 L Hct 27.0 L MPV 12.5 H Immature Gran % (Auto) 0.7 H Neut % (Auto) 84.2 H Lymph % (Auto) 14.1 L [place] % (Auto) 0.9 L Abs Immat Gran (auto) 0.12 H Absolute Neuts (auto) 14.2 H PT INR Sodium 133 L Chloride BUN 40 H Random Glucose 286 H Calcium 8.0 L ALT Troponin I High Sens B-Natriuretic Peptide Total Protein Albumin COVID-19 (STEPHANIE) Diagnostic Findings Chest x-ray: report reviewed and image reviewed CT scan - chest: report reviewed and image reviewed Assessment and Plan (1) COVID-19: Status: Acute (2) Recurrent left pleural effusion: Status: Acute (3) Acute respiratory failure with hypoxia: Status: Acute (4) Pneumonia due to COVID-19 virus: Status: Acute Plan This patient has multiple underlying comorbidities, and a very high risk patient. Current picture is secondary to, persistent COVID 19 pneumonia , or possible bacterial pneumonia. She also has recurrent left pleural effusion, and atelectasis. Recc . Continue with broad-spectrum antibiotic coverage. Continue O2 supplementation with High Flow , to keep O2 sat above 90%. DuoNeb updrafts Q 6 hours while awake, Agree with IV dexamethasone . Consult interventional radiology, for possible thoracenteses left chest. Patient may need to have chest tube placed in the left chest, and is also candidate for VATS assisted decortication and chest tube drainage. However , she is a very high risk and, in general her prognosis is poor. This needs to be discussed with the family . Thank you for asking me to see this patient. Procedures Date of Service Date of Service: 05/21/22
[2022-05-21] MEDS: Nystatin Oral Susp 500,000 UNIT/5 ML ORAL.SUSP 500000 UNIT PO ×3 (11:56→20:44)
--- NOTE | 2022-05-21 12:56 | HO.PM.IMPN ---
Subjective Subjective Date of Service: 05/21/22 Interval History: f/u on covid pna interval history: remains hypoxic and on high O2 Review of Systems sob no fever Physical Exam Vital Signs: Vital Signs: Last Vital Signs Temp 97.0 F 05/21/22 06:23 Pulse 70 05/21/22 06:23 Resp 22 H 05/21/22 10:53 BP 155/42 H 05/21/22 06:23 Pulse Ox 89 L 05/21/22 06:23 O2 Del Method 05/21/22 06:23 O2 Flow Rate 90 05/21/22 05:15 FiO2 90 05/21/22 06:23 Oxygen Flow Rate 15 05/20/22 16:20 BMI result Body Mass Index 28.9 Const: Other: General: AO X 2, no acute distress Resp: CTA bilateral, mild tachypnea CVS: S1,S2,RRR GI: +BS, NT, no distention Skin: No rash Neuro: motor grossly intact Psych: appropriate affect Objective Data Active Medications Acetaminophen (Acetaminophen 325 Mg Tablet) 650 mg PO Q6H PRN PRN Reason: Pain, Mild (Pain Scale 1-3) Albuterol Sulfate (Albuterol Sulfate 90 Mcg 8 Gm Inhaler) 2 puff INHALE Q8H PRN PRN Reason: Shortness Of Breath Or Wheezing Atorvastatin Calcium (Atorvastatin Calcium 20 Mg Tablet) 20 mg PO DAILY [facility] Last Admin: 05/21/22 09:08 Dose: 20 mg Documented By: CHANELL Carvedilol (Carvedilol 3.125 Mg Tablet) 3.125 mg PO BID [facility]; Protocol Last Admin: 05/21/22 09:08 Dose: 3.125 mg Documented By: CHANELL Clonidine (Clonidine 0.2 Mg Patch.Tdwk) 0.2 mg TRANSDERMA MO@1000 [facility]; Protocol Dexamethasone Sodium Phosphate (Dexamethasone Sod Phosphate 4 Mg/Ml Vial) 6 mg IVPUSH DAILY [facility] Last Admin: 05/21/22 09:02 Dose: 6 mg Documented By: CHANELL Escitalopram Oxalate (Escitalopram Oxalate 10 Mg Tablet) 10 mg PO DAILY [facility] Last Admin: 05/21/22 11:06 Dose: Not Given Documented By: CHANELL Non-Admin Reason: Med Not Available Furosemide (Furosemide 40 Mg Tablet) 40 mg PO DAILY [facility]; Protocol Last Admin: 05/21/22 09:08 Dose: 40 mg Documented By: CHANELL Vancomycin HCl 1,000 mg/ (Sodium Chloride) 270 mls @ 270 mls/hr IV Q24H [facility] Piperacillin Sod/Tazobactam (Sod 2.25 gm/ Sodium Chloride) 50 mls @ 100 mls/hr IV Q6H [facility] Last Infusion: 05/21/22 12:54 Dose: 0 mls/hr Documented By: CHANELL Latanoprost (Latanoprost 0.005 % Ophth Silvia 2.5 Ml Drops) 1 drop EYE-BOTH BEDTIME [facility] Losartan Potassium (Losartan Potassium 50 Mg Tablet) 100 mg PO DAILY [facility]; Protocol Melatonin (Melatonin 3 Mg Tablet) 6 mg PO BEDTIME PRN PRN Reason: Insomnia Morphine Sulfate (Morphine Sulfate 4 Mg/Ml Cartridge) 1 mg IVPUSH Q4H PRN; Protocol PRN Reason: Pain, SOB Last Admin: 05/21/22 09:03 Dose: 1 mg Documented By: CHANELL Non-Formulary Medication (Acalabrutinib) 100 mg PO Q12H [facility] Nystatin (Nystatin Oral Susp 500,000 Unit/5 Ml Oral.Susp) 500,000 unit PO QID [facility]; Protocol Last Admin: 05/21/22 11:56 Dose: 500,000 unit Documented By: CHANELL Pharmacy Consult (Consult Rx Perform Med Rec) 1 each MISCELLANE ONCE PRN PRN Reason: Consult order Pharmacy Consult (Consult Rx Vancomycin Dosing) 1 each MISCELLANE DAILY PRN PRN Reason: Consult order Senna (Sennosides 8.6 Mg Tablet) 17.2 mg PO BEDTIME PRN PRN Reason: Constipation Senna (Sennosides 8.6 Mg Tablet) 8.6 mg PO DAILY PRN PRN Reason: Constipation Sodium Chloride (0.9 % Sodium Chloride Flush 3 Ml Syringe) 3 ml IVFLUSH QSHIFT [facility] Last Admin: 05/21/22 09:20 Dose: Not Given Documented By: CHANELL Non-Admin Reason: Previously Administered Tiotropium [place] (Tiotropium [place] 18 Mcg Cap.W.Dev) 1 puff INHALE RDAILY [facility] Last Admin: 05/21/22 08:23 Dose: Not Given Documented By: SUMMER Non-Admin Reason: Med Not Available Trazodone HCl (Trazodone Hcl 25 Mg Halftab) 25 mg PO BEDTIME [facility] Labs CBC & Chem 7: 05/21/22 04:28 05/21/22 04:28 Labs: Laboratory Results - last 24 hr 05/20/22 05/20/22 05/20/22 16:55 16:56 16:56 MCV 85.7 MCH 28.9 MCHC 33.7 RDW 14.2 Plt Count 193 MPV 12.6 H Immature Gran % (Auto) 0.8 H Neut % (Auto) 78.7 H Lymph % (Auto) 19.[address] [place] % (Auto) 1.4 L Eos % (Auto) 0.0 Baso % (Auto) 0.1 Lymph # (Auto) 3.7 [place] # (Auto) 0.3 Eos # (Auto) 0.0 Baso # (Auto) 0.0 Abs Immat Gran (auto) 0.16 H Absolute Neuts (auto) 15.4 H Absolute Nucleated RBC 0.000 Nucleated RBC % (auto) 0.0 Smear Tech's Comments PT 14.2 H INR 1.2 H APTT 24.8 Anion Gap Estim Creat Clear Calc Estimated GFR Random Glucose Lactic Acid 1.8 Calcium Magnesium Total Bilirubin Direct Bilirubin AST ALT Alkaline Phosphatase Troponin I High Sens B-Natriuretic Peptide Total Protein Albumin Procalcitonin COVID-19 (STEPHANIE) COVID-Send the Trend 05/20/22 05/20/22 05/20/22 16:56 16:56 16:56 MCV MCH MCHC RDW Plt Count MPV Immature Gran % (Auto) Neut % (Auto) Lymph % (Auto) [place] % (Auto) Eos % (Auto) Baso % (Auto) Lymph # (Auto) [place] # (Auto) Eos # (Auto) Baso # (Auto) Abs Immat Gran (auto) Absolute Neuts (auto) Absolute Nucleated RBC Nucleated RBC % (auto) Smear Tech's Comments PT INR APTT Anion Gap 15 Estim Creat Clear Calc 26.9 Estimated GFR 41 Random Glucose 268 H Lactic Acid Calcium 7.9 L Magnesium 2.1 Total Bilirubin 0.9 Direct Bilirubin 0.4 AST 31 ALT 73 H Alkaline Phosphatase 104 Troponin I High Sens 35.1 H B-Natriuretic Peptide 283 H Total Protein 4.9 L Albumin 2.7 L Procalcitonin 0.31 COVID-19 (STEPHANIE) COVID-19 Clin Com 05/20/22 05/20/22 05/21/22 16:57 20:27 04:28 MCV 85.4 MCH 28.8 MCHC 33.7 RDW 14.2 Plt Count 172 MPV 12.5 H Immature Gran % (Auto) 0.7 H Neut % (Auto) 84.2 H Lymph % (Auto) 14.[address] [place] % (Auto) 0.9 L Eos % (Auto) 0.0 Baso % (Auto) 0.1 Lymph # (Auto) 2.4 [place] # (Auto) 0.2 Eos # (Auto) 0.0 Baso # (Auto) 0.0 Abs Immat Gran (auto) 0.12 H Absolute Neuts (auto) 14.2 H Absolute Nucleated RBC 0.000 Nucleated RBC % (auto) 0.0 Smear Tech's Comments VERIFIED PT INR APTT Anion Gap Estim Creat Clear Calc Estimated GFR Random Glucose Lactic Acid Calcium Magnesium Total Bilirubin Direct Bilirubin AST ALT Alkaline Phosphatase Troponin I High Sens 32.3 H B-Natriuretic Peptide Total Protein Albumin Procalcitonin COVID-19 (STEPHANIE) Positive A COVID-19 Clin Com See Note 05/21/22 04:28 MCV MCH MCHC RDW Plt Count MPV Immature Gran % (Auto) Neut % (Auto) Lymph % (Auto) [place] % (Auto) Eos % (Auto) Baso % (Auto) Lymph # (Auto) [place] # (Auto) Eos # (Auto) Baso # (Auto) Abs Immat Gran (auto) Absolute Neuts (auto) Absolute Nucleated RBC Nucleated RBC % (auto) Smear Tech's Comments PT INR APTT Anion Gap 16 Estim Creat Clear Calc 29.5 Estimated GFR 46 Random Glucose 286 H Lactic Acid Calcium 8.0 L Magnesium Total Bilirubin Direct Bilirubin AST ALT Alkaline Phosphatase Troponin I High Sens B-Natriuretic Peptide Total Protein Albumin Procalcitonin COVID-19 (STEPHANIE) COVID-19 Clin Com Assessment and Plan (1) Pneumonia due to COVID-19 virus: Status: Acute (2) Acute respiratory failure with hypoxia: Status: Acute (3) Recurrent left pleural effusion: Status: Acute (4) COVID-19: Status: Acute Plan 87-year-old female with a past medical history of hypertension, hyperlipidemia, CAD, CHF-diastolic, AFib-not on anticoagulation, SSS s/p pacemaker, moderate aortic stenosis, CKD stage 3, CLL on Acalbrutinib, anxiety, depression, asthma, recent admission to the [facility] in March of 2022 for hemorrhagic pleural effusion-status post therapeutic tap; presented to the hospital today with a chief complaint of shortness of breath/hypoxia/COVID-19 positive. Acute hypoxic respiratory failure: In the setting of COVID-19 pneumonia/moderate pleural effusion.? Patient was briefly on CPAP on presentation.? Currently transitioned to high-flow nasal cannula.? Currently not in respiratory distress.? Supportive care.? COVID-19 pneumonia: covid positive since Patient is COVID-19 vaccinated with Pfizer vaccine.? Current CT scan showed patchy opacities.? Will give the patient on Decadron 6 mg IV daily Continue IV vancomycin and Zosyn Id consult for further recommendations Moderate pleural effusion:?Thoracentesis by IR for cell count and cytology History of diastolic CHF: Continue home Lasix.? History of hypertension:? meds on hold d/t low bp but better now History of anxiety/depression: Continue home clonidine/escitalopram History of glaucoma: Continue home latanoprost History of CLL: Continue home Acalabrutinib. History of AFib: Patient currently not on anticoagulation.? Recently discontinued at [facility] given bloody pleural effusion. DVT prophylaxis:? SCD boots.? Avoiding pharmacologic agent for now, given concerns for recent hemorrhagic pleural effusion. Code status:? DNR/DNI.? Confirmed with the patient's family at bedside. Need for inaptient acute hypoxic respiratory failure d/t covid requiring high oxygen, IV Abx for pneumonia Quality Stroke Does the patient have a stroke diagnosis?: No VTE Prior VTE?: No VTE Risk Level:: Medical - moderate - high VTE Device Contraindication: N/A - Device Ordered VTE Drug Contraindication: Treatment Not Indicated
--- NOTE | 2022-05-21 13:56 | MHC.CM.PN ---
Addendum entered by Jeni Walter 05/21/22 14:17: PT WILL BE ALLOWED TO HAVE FAMILY VISITS PER [facility], HOWEVER THEY WILL BE REQUIRED TO WEAR A MASK AND IF IN CONTACT WITH PT SHOULD WEAR FULL PPE Original Note: PT COVID-19 POSITIVE PER EMR CM CALLED PTS HCP/[id number], SARAH [phone] WHO REPORTS THE PT WAS AT [facility] IN LATE MARCH. [place] [facility] [place] [facility] FOR STR AND THEN HOME WITH ADAM SPIVEY SARAH REPORTS AT BASELINE THE PT IS INDEPENDENT, HAS NO DME AND NO HOME SERVICES PT IS COVID-19 VACCINATED AND BOOSTED A COPY OF PTS HCP WAS OBTAINED FROM [facility] PCP: ALFREDO DEL CASTILLO SARAH REPORTS CONCERN THAT THE PT IS NOT ALLOWED TO HAVE VISITORS. SHE REPORTS THE PTS FIRST POSITIVE COVID TEST WAS FROM 04/30/22 AND WHEN SHE DISCHARGED TO [facility] ON 05/02/22, THEY DID NOT ISOLATE HER AND ALLOWED FAMILY AT BEDSIDE THE FIRST DAY. SARAH REPORTS CONCERN THAT THE PT HAS BOTH VISION AND HEARING IMPAIRMENT AND DOES NOT DO WELL IF FAMILY CANNOT BE PRESENT. CM INFORMED HER THIS WOULD BE DISCUSSED WITH [facility] IMM DELIVERED, A COPY WILL BE MAILED TO SARAH AND ANOTHER WAS SENT TO [facility] CURRENT DC PLAN IS HOME WITH FAMILY AND RESUMPTION OF [facility] TO TRANSPORT OF NOTE: [facility] DID NOT INITIATE SOC SO NEW ORDERS WILL BE REQUIRED.
[2022-05-21] MEDS: Lidocaine HCl 1 % MPF 5 ML VIAL SUBCUT (16:38)
[2022-05-21 17:00] LABS: MN% 2.1 %; PMN% 97.9 %
[2022-05-21 17:04] LABS: RBC Pleural Fluid 0.095 X10*3/uL
--- NOTE | 2022-05-21 17:35 | PC.NURSE ---
Pt. anxious today, on high flow NC 90% O2 sats at 92. Morphine 1mg given at 09:00, thoracentesis performed, pt tolerated well. Pt in bed with loved one at bed-side call alfaro in hand.
[2022-05-21] MEDS: vancomycin HCL 1,000 MG in 0.9 % Sodium Chloride 250 ML 270 MG IV (17:44)
[2022-05-21 18:05] LABS: Monocytes Pleural Fluid 4 %; Neutrophils Pleural Fluid 92 %; Other Cells Plerual Fl 4 %
[2022-05-21 18:14] LABS: BF Shift QC OK YES; Man Diluent Bkgrd OK YES
--- NOTE | 2022-05-21 19:24 | PC.NURSE ---
Addendum entered by Joelle Bass 05/22/22 07:01: Report given to CARLOS Gonzalez Addendum entered by Joelle Bass 05/22/22 06:49: Report given to CARLOS Nieto Addendum entered by Joelle Bass 05/22/22 04:27: pt continuous to desat to low 80's. respiratory therapist added oxymask now sating above 95%. Dr. Brandon made aware Addendum entered by Joelle Bass 05/21/22 19:51: pt resting in bed. on continuos cardiac monitoring. denies any chest pain. son bedside. pt on high flow NC at 40L Original Note: report received from CARLOS Corrales
[2022-05-21] MEDS: traZODone HCL 25 MG HALFTAB PO (20:45)
[2022-05-21] MEDS: Melatonin 3 MG TABLET 6 MG PO (20:46)
[2022-05-21] MEDS: Latanoprost 0.005 % Ophth Sol 2.5 ML DROPS 1 DROP EYE-BOTH (21:25)
[2022-05-22] VITALS (11 sets, daily range): BP systolic 140–166; BP diastolic 41–78; PULSE 54–112; RESP 18–25; TEMP 36.6–37; O2SAT 74–99
[2022-05-22] MEDS: Morphine Sulfate 4 MG/ML CARTRIDGE 1 MG IVPUSH ×3 (04:11→23:02)
[2022-05-22] MEDS: Piperacillin Sodium/Tazobactam 2.25 GM in 0.9 % Sodium Chloride 50 ML IV ×4 (05:02→23:05)
[2022-05-22] MEDS: Morphine Sulfate 2 MG/ML CARTRIDGE IVPUSH (07:22)
--- NOTE | 2022-05-22 09:37 | HO.PM.IMPN ---
Subjective Subjective Date of Service: 05/22/22 Interval History: f/u on covid pna interval history: remains very hypoxic, very anxious Review of Systems sob no fever anxiety Physical Exam Vital Signs: Vital Signs: Last Vital Signs Temp 97.8 F 05/22/22 09:01 Pulse 68 05/22/22 09:01 Resp 20 05/22/22 09:01 BP 140/50 H 05/22/22 09:01 Pulse Ox 82 L 05/22/22 09:01 O2 Del Method 05/22/22 09:01 O2 Flow Rate 40 05/22/22 05:02 FiO2 90 05/21/22 06:23 Oxygen Flow Rate 15 05/20/22 16:20 BMI result Body Mass Index 28.9 Const: Other: General: AO X 2, no acute distress--hard of hearing Resp: CTA bilateral, mild tachypnea CVS: S1,S2,RRR GI: +BS, NT, no distention Skin: No rash Neuro: motor grossly intact Psych: anxieous Objective Data Active Medications Acetaminophen (Acetaminophen 325 Mg Tablet) 650 mg PO Q6H PRN PRN Reason: Pain, Mild (Pain Scale 1-3) Albuterol Sulfate (Albuterol Sulfate 90 Mcg 8 Gm Inhaler) 2 puff INHALE Q8H PRN PRN Reason: Shortness Of Breath Or Wheezing Atorvastatin Calcium (Atorvastatin Calcium 20 Mg Tablet) 20 mg PO DAILY [facility] Last Admin: 05/21/22 09:08 Dose: 20 mg Documented By: CHANELL Carvedilol (Carvedilol 3.125 Mg Tablet) 3.125 mg PO BID [facility]; Protocol Last Admin: 05/21/22 20:46 Dose: 3.125 mg Documented By: ADRIANEICL Clonidine (Clonidine 0.2 Mg Patch.Tdwk) 0.2 mg TRANSDERMA MO@1000 [facility]; Protocol Dexamethasone Sodium Phosphate (Dexamethasone Sod Phosphate 4 Mg/Ml Vial) 6 mg IVPUSH DAILY [facility] Last Admin: 05/21/22 09:02 Dose: 6 mg Documented By: CHANELL Escitalopram Oxalate (Escitalopram Oxalate 10 Mg Tablet) 10 mg PO DAILY [facility] Last Admin: 05/21/22 11:06 Dose: Not Given Documented By: CHANELL Non-Admin Reason: Med Not Available Furosemide (Furosemide 40 Mg Tablet) 40 mg PO DAILY [facility]; Protocol Last Admin: 05/21/22 09:08 Dose: 40 mg Documented By: CHANELL Vancomycin HCl 1,000 mg/ (Sodium Chloride) 270 mls @ 270 mls/hr IV Q24H [facility] Last Infusion: 05/21/22 18:46 Dose: 0 mls/hr Documented By: CHANELL Piperacillin Sod/Tazobactam (Sod 2.25 gm/ Sodium Chloride) 50 mls @ 100 mls/hr IV Q6H [facility] Last Infusion: 05/22/22 07:16 Dose: 0 mls/hr Documented By: VIDHI Latanoprost (Latanoprost 0.005 % Ophth Silvia 2.5 Ml Drops) 1 drop EYE-BOTH BEDTIME [facility] Last Admin: 05/21/22 21:25 Dose: 1 drop Documented By: DEBO-SUNNY Losartan Potassium (Losartan Potassium 50 Mg Tablet) 100 mg PO DAILY [facility]; Protocol Melatonin (Melatonin 3 Mg Tablet) 6 mg PO BEDTIME PRN PRN Reason: Insomnia Last Admin: 05/21/22 20:46 Dose: 6 mg Documented By: DEBO-SUNNY Morphine Sulfate (Morphine Sulfate 4 Mg/Ml Cartridge) 1 mg IVPUSH Q4H PRN; Protocol PRN Reason: Pain, SOB Last Admin: 05/22/22 04:11 Dose: 1 mg Documented By: LETITIA Patient Own Med ( Acalabrutinib 100 Mg Capsule) 100 mg PO Q12H [facility] Last Admin: 05/21/22 21:25 Dose: 100 mg Documented By: DEBO-SUNNY Nystatin (Nystatin Oral Susp 500,000 Unit/5 Ml Oral.Susp) 500,000 unit PO QID [facility]; Protocol Last Admin: 05/21/22 20:44 Dose: 500,000 unit Documented By: DEBO-SUNNY Pharmacy Consult (Consult Rx Perform Med Rec) 1 each MISCELLANE ONCE PRN PRN Reason: Consult order Pharmacy Consult (Consult Rx Vancomycin Dosing) 1 each MISCELLANE DAILY PRN PRN Reason: Consult order Senna (Sennosides 8.6 Mg Tablet) 17.2 mg PO BEDTIME PRN PRN Reason: Constipation Senna (Sennosides 8.6 Mg Tablet) 8.6 mg PO DAILY PRN PRN Reason: Constipation Sodium Chloride (0.9 % Sodium Chloride Flush 3 Ml Syringe) 3 ml IVFLUSH QSHIFT [facility] Last Admin: 05/21/22 23:11 Dose: 3 ml Documented By: DEBO-ANICL Tiotropium Lee (Tiotropium Lee 18 Mcg Cap.W.Dev) 1 puff INHALE RDAILY [facility] Last Admin: 05/22/22 08:23 Dose: Not Given Documented By: SUMMER Non-Admin Reason: Med Not Available Trazodone HCl (Trazodone Hcl 25 Mg Halftab) 25 mg PO BEDTIME [facility] Last Admin: 05/21/22 20:45 Dose: 25 mg Documented By: DEBO-SAMICL Labs CBC & Chem 7: 05/21/22 04:28 05/21/22 04:28 Labs: Laboratory Results - last 24 hr 05/21/22 16:00 Pleural WBC 3.130 Pleural RBC 0.095 Pleural Neutrophils 92 Pleural Monocytes 4 Pleural Other Cells 4 Microbiology Microbiology Results: Microbiology 05/20/22 16:56 Blood Culture - Preliminary Blood - Venous No growth after 24 hours. 05/20/22 20:27 Blood Culture - Preliminary Blood - Venous Prelim: GNR Gram Stain only Assessment and Plan (1) Pneumonia due to COVID-19 virus: Status: Acute (2) Acute respiratory failure with hypoxia: Status: Acute (3) Recurrent left pleural effusion: Status: Acute (4) COVID-19: Status: Acute Plan 87-year-old female with a past medical history of hypertension, hyperlipidemia, CAD, CHF-diastolic, AFib-not on anticoagulation, SSS s/p pacemaker, moderate aortic stenosis, CKD stage 3, CLL on Acalbrutinib, anxiety, depression, asthma, recent admission to the [facility] in March of 2022 for hemorrhagic pleural effusion-status post therapeutic tap; presented to the hospital today with a chief complaint of shortness of breath/hypoxia/COVID-19 positive. Acute severe hypoxic respiratory failure: In the setting of COVID-19 pneumonia/moderate pleural effusion.? Patient was briefly on CPAP on presentation.? Currently on high-flow nasal cannula. ogal of O2 90 o better?she is highly anxious from her not there.. continue present care.. Adjust O2 as need,Morphine for respiratory distress COVID-19 pneumonia: covid positive for weeks Patient is COVID-19 vaccinated with Pfizer vaccine.? CT scan showed patchy opacities.? Continue Zosyn and Vanco, DC Vanco if cultures negative Continue IV Decadron no indication for Remdesevir Pulmonology input noted Overall poor prognosis Moderate pleural effusion:?Thoracentesis by IR yesterday History of diastolic CHF: Continue home Lasix.? History of hypertension:? meds on hold d/t low bp but better now History of anxiety/depression: Continue home clonidine/escitalopram History of glaucoma: Continue home latanoprost History of CLL: Continue home Acalabrutinib. History of AFib: Patient currently not on anticoagulation.? Recently discontinued at [facility] given bloody pleural effusion. DVT prophylaxis:? SCD boots.? Avoiding pharmacologic agent for now, given concerns for recent hemorrhagic pleural effusion. Code status:? DNR/DNI.? Confirmed with the patient's family at bedside. Need for inaptient acute severe hypoxic respiratory failure d/t covid requiring high oxygen, IV Abx for pneumonia Quality Stroke Does the patient have a stroke diagnosis?: No VTE Prior VTE?: No VTE Risk Level:: Medical - moderate - high VTE Device Contraindication: N/A - Device Ordered VTE Drug Contraindication: Treatment Not Indicated
[2022-05-22] MEDS: Atorvastatin Calcium 20 MG TABLET PO (10:26)
[2022-05-22] MEDS: Furosemide 40 MG TABLET PO (10:26)
[2022-05-22] MEDS: carvediloL 3.125 MG TABLET PO ×2 (10:26→19:19)
[2022-05-22] MEDS: 0.9 % Sodium Chloride Flush 3 ML SYRINGE IVFLUSH ×2 (10:27→19:23)
[2022-05-22] MEDS: dexAMETHasone sod phosphate 4 MG/ML VIAL 6 MG IVPUSH (10:27)
[2022-05-22] MEDS: Escitalopram Oxalate 10 MG TABLET PO (10:27)
[2022-05-22] MEDS: Nystatin Oral Susp 500,000 UNIT/5 ML ORAL.SUSP 500000 UNIT PO ×3 (10:28→19:18)
--- NOTE | 2022-05-22 15:43 | PC.NURSE ---
PT RECIEVED INT ROOM 474 AT APPROX 0900. AT BEDSIDE ALL SHIFT WITH THE PERMISSION OF CAMMIE VALE. PT HAD BEEN A&O. O2 SAT HAS BEEN IN THE LOW TO MID 80'S ALL SHIFT. PT WAS NOT IN ANY DISTRESS. USING HIFLO 100% 55L WITH NRB. Dr Rivera is mccall. Morphine was given with little effect.
--- NOTE | 2022-05-22 15:50 | W.PM.IDCN ---
History of Present Illness Data of Consult Service Date: 05/22/22 Requesting physician: Erik Rivera Primary Care Provider: Guera Oscar MD HPI Reason for consult: bacteremia,COVID She presents with weakness and shortness of breath. She had admission [facility] pleural effusions and did have COVID positive test on 04/30 there. She has CLL and is on acelbrutinib She is DNR/DNI. She has patchy opacities CXR and effusion. Review of Systems Review of Systems: Yes Unobtainable due to mental condition [facility] Family History Family history: reviewed and not pertinent Social History Social History Household Members: Spouse Housing: House Do you presently have visiting nurse or other home services: No Patient Tobacco Use Status: Former Tobacco user service: No Current occupational status: retired Meds Allergies Allergy/AdvReac Type Severity Reaction Status Date / Time lisinopril [LISINOPRIL] Allergy Severe HIVES AND Unverified 08/15/20 15:30 SWELLING shellfish derived Allergy Severe HIVES AND Unverified 08/15/20 15:30 [SHELLFISH DERIVED] SWELLING Active Medications: Current Medications Acetaminophen (Acetaminophen 325 Mg Tablet) 650 mg PO Q6H PRN PRN Reason: Pain, Mild (Pain Scale 1-3) Albuterol Sulfate (Albuterol Sulfate 90 Mcg 8 Gm Inhaler) 2 puff INHALE Q8H PRN PRN Reason: Shortness Of Breath Or Wheezing Atorvastatin Calcium (Atorvastatin Calcium 20 Mg Tablet) 20 mg PO DAILY [facility] Last Admin: 05/22/22 10:26 Dose: 20 mg Carvedilol (Carvedilol 3.125 Mg Tablet) 3.125 mg PO BID [facility]; Protocol Last Admin: 05/22/22 10:26 Dose: 3.125 mg Clonidine (Clonidine 0.2 Mg Patch.Tdwk) 0.2 mg TRANSDERMA MO@1000 [facility]; Protocol Dexamethasone Sodium Phosphate (Dexamethasone Sod Phosphate 4 Mg/Ml Vial) 6 mg IVPUSH DAILY [facility] Last Admin: 05/22/22 10:27 Dose: 6 mg Escitalopram Oxalate (Escitalopram Oxalate 10 Mg Tablet) 10 mg PO DAILY [facility] Last Admin: 05/22/22 10:27 Dose: 10 mg Furosemide (Furosemide 40 Mg Tablet) 40 mg PO DAILY [facility]; Protocol Last Admin: 05/22/22 10:26 Dose: 40 mg Vancomycin HCl 1,000 mg/ (Sodium Chloride) 270 mls @ 270 mls/hr IV Q24H [facility] Last Infusion: 05/21/22 18:46 Dose: Infused Piperacillin Sod/Tazobactam (Sod 2.25 gm/ Sodium Chloride) 50 mls @ 100 mls/hr IV Q6H [facility] Last Infusion: 05/22/22 14:41 Dose: Infused Latanoprost (Latanoprost 0.005 % Ophth Silvia 2.5 Ml Drops) 1 drop EYE-BOTH BEDTIME [facility] Last Admin: 05/21/22 21:25 Dose: 1 drop Losartan Potassium (Losartan Potassium 50 Mg Tablet) 100 mg PO DAILY [facility]; Protocol Melatonin (Melatonin 3 Mg Tablet) 6 mg PO BEDTIME PRN PRN Reason: Insomnia Last Admin: 05/21/22 20:46 Dose: 6 mg Morphine Sulfate (Morphine Sulfate 4 Mg/Ml Cartridge) 1 mg IVPUSH Q4H PRN; Protocol PRN Reason: Pain, SOB Last Admin: 05/22/22 14:23 Dose: 1 mg Morphine Sulfate (Morphine Sulfate 2 Mg/Ml Cartridge) 2 mg IVPUSH Q4H PRN; Protocol PRN Reason: acute respiratory distress Patient Own Med ( Acalabrutinib 100 Mg Capsule) 100 mg PO Q12H [facility] Last Admin: 05/22/22 10:29 Dose: 100 mg Nystatin (Nystatin Oral Susp 500,000 Unit/5 Ml Oral.Susp) 500,000 unit PO QID [facility]; Protocol Last Admin: 05/22/22 12:31 Dose: Not Given Pharmacy Consult (Consult Rx Perform Med Rec) 1 each MISCELLANE ONCE PRN PRN Reason: Consult order Pharmacy Consult (Consult Rx Vancomycin Dosing) 1 each MISCELLANE DAILY PRN PRN Reason: Consult order Senna (Sennosides 8.6 Mg Tablet) 17.2 mg PO BEDTIME PRN PRN Reason: Constipation Senna (Sennosides 8.6 Mg Tablet) 8.6 mg PO DAILY PRN PRN Reason: Constipation Sodium Chloride (0.9 % Sodium Chloride Flush 3 Ml Syringe) 3 ml IVFLUSH QSHIFT [facility] Last Admin: 05/22/22 10:27 Dose: 3 ml Tiotropium [place] (Tiotropium [place] 18 Mcg Cap.W.Dev) 1 puff INHALE RDAILY [facility] Last Admin: 05/22/22 08:23 Dose: Not Given Trazodone HCl (Trazodone Hcl 25 Mg Halftab) 25 mg PO BEDTIME [facility] Last Admin: 05/21/22 20:45 Dose: 25 mg Home Medications Medication Instructions Recorded Confirmed Last Taken Type acalabrutinib 100 mg capsule 100 mg PO Q12H 05/20/22 05/20/22 Unknown History acetaminophen 325 mg tablet 650 mg PO Q6H PRN FEVER/PAIN 05/20/22 05/20/22 Unknown History albuterol sulfate 90 mcg/actuation 2 puff inhalation Q8H PRN 05/20/22 05/20/22 Unknown History aerosol inhaler (ProAir HFA) Shortness Of Breath Or Wheezing amlodipine 10 mg tablet 10 mg PO DAILY 05/20/22 05/20/22 Unknown History atorvastatin 20 mg tablet 20 mg PO DAILY 05/20/22 05/20/22 Unknown History carvedilol 6.25 mg tablet 6.25 mg PO BID 05/20/22 05/20/22 Unknown History clonidine 0.2 mg/24 hr weekly 1 patch transdermal MO@1000 05/20/22 05/20/22 Unknown History transdermal patch escitalopram oxalate 10 mg tablet 10 mg PO DAILY 05/20/22 05/20/22 Unknown History furosemide 40 mg tablet (Lasix) 40 mg PO DAILY 05/20/22 05/20/22 Unknown History latanoprost 0.005 % eye drops 1 drp ophthalmic (eye) BEDTIME 05/20/22 05/20/22 Unknown History losartan 100 mg tablet 100 mg PO DAILY 05/20/22 05/20/22 Unknown History nystatin 100,000 unit/mL oral 500,000 unit PO QID 05/20/22 05/20/22 Unknown History suspension sennosides 8.6 mg tablet (senna) 8.6 mg PO DAILY PRN Constipation 05/20/22 05/20/22 Unknown History tiotropium bromide 18 mcg capsule 1 cap inhalation DAILY 05/20/22 05/20/22 Unknown History with inhalation device (Spiriva with HandiHaler) trazodone 50 mg tablet 25 mg PO BEDTIME 05/20/22 05/20/22 Unknown History Physical Exam Vital Signs: Vital Signs: Last Vital Signs Temp 98.6 F 05/22/22 15:18 Pulse 61 05/22/22 15:18 Resp 18 05/22/22 15:42 BP 144/78 H 05/22/22 15:18 Pulse Ox 82 L 05/22/22 15:18 O2 Del Method Non-Rebreather Ma sk 05/22/22 15:18 O2 Flow Rate 55 05/22/22 15:18 FiO2 90 05/22/22 15:18 Oxygen Flow Rate 15 05/20/22 16:20 BMI result Body Mass Index 28.9 Const: General: cooperative Eyes: General: appearance normal, both eyes and all related structures Resp: Effort & Inspection: normal respiratory effort Cardio: Rate: regular rate Rhythm: regular rhythm GI: Palpation (GI): nontender Results Labs CBC & Chem 7: 05/21/22 04:28 05/21/22 04:28 Microbiology Microbiology Results: Microbiology 05/20/22 20:27 Blood - Venous Blood Culture - Preliminary Gram negative lavon 05/20/22 16:56 Blood - Venous Blood Culture - Preliminary No growth after 24 hours. Assessment and Plan (1) Acute respiratory failure with hypoxia: Status: Acute (2) Recurrent left pleural effusion: Status: Acute (3) Gram-negative bacteremia: Status: Acute There is profound immunosuppression and poor survival with COVID in hematologic malignancy patients ,especially of this age. She has gram negative bacteremia,possible occult bowel perf or urinary obstruction. She has possibility of resistant organisms with recent hospitalization. COVID is likely still affecting lungs and she has post COVID pneumonia and possible resistant organisms COVID is too late to treat with Remdesivir although it is likely still active. Steroids will cover post COVID lung inflammation also. Plan Continue Piperacillin/Tazobactam 5-7 days Continue Vancomycin but stop if nares negative MRSA. Can continue steroids. Continue oxygen. No Remdesivir since virus present since 04/30 ,too late. Also rather late for Paxlovid. No baricitinib since bacteremic,risk immunosuppression. Consider CT abdomen and pelvis help find source gram negative bacteremia. Maintain full COVID isolation for duration of hospitalization Prognosis is terrible unfortunately.
[2022-05-22 16:54] LABS: Creatinine Clr Calc Pharmacy 28.5; Estimated Glomerular Filt Rate 44
--- NOTE | 2022-05-22 17:22 | PC.NURSE ---
P Vanco level 11.[address] Rivera notified E awaiting new orders
[2022-05-22] MEDS: vancomycin HCL 1,000 MG in 0.9 % Sodium Chloride 250 ML 270 MG IV (17:42)
[2022-05-22] MEDS: traZODone HCL 25 MG HALFTAB PO (19:19)
--- NOTE | 2022-05-22 20:03 | PC.NURSE ---
At change of shift, pt oxygen was reading 80% on HF 100% 50L. During my first assessment pt was noted to be alert and oriented, able to respond to commands. Does not appear to be in major respiratory distress despite her oxygen saturation. Pt just expressing that she is scared and does not want me to leave her alone. Dr. Ya notified, bipap order placed. Respiratory at bedside, pt refusing bipap. Pt unable to tolerate laying on side. Dr. Ya updated, stated her family is aware of her prognosis. Will continue high flow and monitor.
[2022-05-23] VITALS: BP 121/82; PULSE 69; RESP 15; TEMP 36.4; O2SAT 75
[2022-05-23 04:00] VITALS: BP 138/75; PULSE 83; RESP 17; TEMP 36.2; O2SAT 75
[2022-05-23] MEDS: Piperacillin Sodium/Tazobactam 2.25 GM in 0.9 % Sodium Chloride 50 ML IV (06:23)
[2022-05-23 07:22] LABS: Creatinine Clr Calc Pharmacy 30.6; Estimated Glomerular Filt Rate 48
[2022-05-23 07:49] VITALS: PULSE 90; RESP 22; O2SAT 74
[2022-05-23 07:53] VITALS: BP 135/86; PULSE 87; RESP 17; TEMP 36.4; O2SAT 79
[2022-05-23] MEDS: Nystatin Oral Susp 500,000 UNIT/5 ML ORAL.SUSP 500000 UNIT PO (08:27)
[2022-05-23] MEDS: carvediloL 3.125 MG TABLET PO (08:28)
[2022-05-23] MEDS: Atorvastatin Calcium 20 MG TABLET PO (08:28)
[2022-05-23] MEDS: Escitalopram Oxalate 10 MG TABLET PO (08:28)
[2022-05-23] MEDS: Morphine Sulfate 2 MG/ML CARTRIDGE IVPUSH (08:28)
[2022-05-23] MEDS: Furosemide 40 MG TABLET PO (08:28)
[2022-05-23] MEDS: dexAMETHasone sod phosphate 4 MG/ML VIAL 6 MG IVPUSH (08:29)
--- NOTE | 2022-05-23 09:02 | HO.PM.IMPN ---
Subjective Subjective Date of Service: 05/23/22 Interval History: f/u on covid pna interval history: very hypoxic despite maximum oxygen and not able to maintain sat, very anxious Review of Systems sob no fever anxiety Physical Exam Vital Signs: Vital Signs: Last Vital Signs Temp 97.5 F 05/23/22 07:53 Pulse 87 05/23/22 07:53 Resp 17 05/23/22 07:53 BP 135/86 05/23/22 07:53 Pulse Ox 79 L 05/23/22 07:53 O2 Del Method 05/23/22 07:53 O2 Flow Rate 15 05/23/22 07:53 FiO2 100 05/23/22 04:00 Oxygen Flow Rate 15 05/20/22 16:20 BMI result Body Mass Index 28.9 Const: Other: General: Alert, very anxious Resp: rhonchi, tachypnea CVS: S1,S2,RRR GI: +BS, NT, no distention Skin: No rash Neuro: motor grossly intact Psych: anxious Objective Data Active Medications Acetaminophen (Acetaminophen 325 Mg Tablet) 650 mg PO Q6H PRN PRN Reason: Pain, Mild (Pain Scale 1-3) Albuterol Sulfate (Albuterol Sulfate 90 Mcg 8 Gm Inhaler) 2 puff INHALE Q8H PRN PRN Reason: Shortness Of Breath Or Wheezing Atorvastatin Calcium (Atorvastatin Calcium 20 Mg Tablet) 20 mg PO DAILY [facility] Last Admin: 05/23/22 08:28 Dose: 20 mg Documented By: TANIKA Carvedilol (Carvedilol 3.125 Mg Tablet) 3.125 mg PO BID [facility]; Protocol Last Admin: 05/23/22 08:28 Dose: 3.125 mg Documented By: TANIKA Clonidine (Clonidine 0.2 Mg Patch.Tdwk) 0.2 mg TRANSDERMA MO@1000 [facility]; Protocol Dexamethasone Sodium Phosphate (Dexamethasone Sod Phosphate 4 Mg/Ml Vial) 6 mg IVPUSH DAILY [facility] Last Admin: 05/23/22 08:29 Dose: 6 mg Documented By: TANIKA Escitalopram Oxalate (Escitalopram Oxalate 10 Mg Tablet) 10 mg PO DAILY [facility] Last Admin: 05/23/22 08:28 Dose: 10 mg Documented By: TANIKA Furosemide (Furosemide 40 Mg Tablet) 40 mg PO DAILY [facility]; Protocol Last Admin: 06/25/22 08:28 Dose: 40 mg Documented By: TANIKA Vancomycin HCl 1,000 mg/ (Sodium Chloride) 270 mls @ 270 mls/hr IV Q24H [facility] Last Infusion: 05/22/22 20:38 Dose: 0 mls/hr Documented By: AHSAN Piperacillin Sod/Tazobactam (Sod 2.25 gm/ Sodium Chloride) 50 mls @ 100 mls/hr IV Q6H [facility] Last Admin: 05/23/22 06:23 Dose: 100 mls/hr Documented By: AHSAN Latanoprost (Latanoprost 0.005 % Ophth Silvia 2.5 Ml Drops) 1 drop EYE-BOTH BEDTIME [facility] Last Admin: 05/22/22 21:26 Dose: Not Given Documented By: AHSAN Non-Admin Reason: none in pt bin Losartan Potassium (Losartan Potassium 50 Mg Tablet) 100 mg PO DAILY [facility]; Protocol Melatonin (Melatonin 3 Mg Tablet) 6 mg PO BEDTIME PRN PRN Reason: Insomnia Last Admin: 05/21/22 20:46 Dose: 6 mg Documented By: LETITIA Morphine Sulfate (Morphine Sulfate 4 Mg/Ml Cartridge) 1 mg IVPUSH Q4H PRN; Protocol PRN Reason: Pain, SOB Last Admin: 05/22/22 23:02 Dose: 1 mg Documented By: AHSAN Morphine Sulfate (Morphine Sulfate 2 Mg/Ml Cartridge) 2 mg IVPUSH Q4H PRN; Protocol PRN Reason: acute respiratory distress Last Admin: 05/23/22 08:28 Dose: 1 mg Documented By: TANIKA Patient Own Med ( Acalabrutinib 100 Mg Capsule) 100 mg PO Q12H [facility] Last Admin: 05/22/22 21:26 Dose: Not Given Documented By: AHSAN Non-Admin Reason: none in pt bin Nystatin (Nystatin Oral Susp 500,000 Unit/5 Ml Oral.Susp) 500,000 unit PO QID [facility]; Protocol Last Admin: 05/23/22 08:27 Dose: 500,000 unit Documented By: TANIKA Pharmacy Consult (Consult Rx Perform Med Rec) 1 each MISCELLANE ONCE PRN PRN Reason: Consult order Pharmacy Consult (Consult Rx Vancomycin Dosing) 1 each MISCELLANE DAILY PRN PRN Reason: Consult order Senna (Sennosides 8.6 Mg Tablet) 17.2 mg PO BEDTIME PRN PRN Reason: Constipation Senna (Sennosides 8.6 Mg Tablet) 8.6 mg PO DAILY PRN PRN Reason: Constipation Sodium Chloride (0.9 % Sodium Chloride Flush 3 Ml Syringe) 3 ml IVFLUSH QSHIFT [facility] Last Admin: 05/22/22 19:23 Dose: 3 ml Documented By: AHSAN Tiotropium Cory (Tiotropium [place] 18 Mcg Cap.W.Dev) 1 puff INHALE RDAILY [facility] Last Admin: 05/23/22 07:49 Dose: Not Given Documented By: SUMMER Non-Admin Reason: Med Not Available Trazodone HCl (Trazodone Hcl 25 Mg Halftab) 25 mg PO BEDTIME [facility] Last Admin: 05/22/22 19:19 Dose: 25 mg Documented By: AHSAN Labs CBC & Chem 7: 05/21/22 04:28 05/23/22 06:49 Labs: Laboratory Results - last 24 hr 05/22/22 05/22/22 05/23/22 16:25 16:25 06:49 Estim Creat Clear Calc 28.5 30.6 Estimated GFR 44 48 Random Vancomycin 11.0 L Microbiology Microbiology Results: Microbiology 05/20/22 20:27 Blood Culture - Final Blood - Venous Pseudomonas aeruginosa 05/20/22 16:56 Blood Culture - Preliminary Blood - Venous No growth after 48 hours. Assessment and Plan (1) Pneumonia due to COVID-19 virus: Status: Acute (2) Acute respiratory failure with hypoxia: Status: Acute (3) Recurrent left pleural effusion: Status: Acute (4) COVID-19: Status: Acute Plan 87-year-old female with a past medical history of hypertension, hyperlipidemia, CAD, CHF-diastolic, AFib-not on anticoagulation, SSS s/p pacemaker, moderate aortic stenosis, CKD stage 3, CLL on Acalbrutinib, anxiety, depression, asthma, recent admission to the [facility] in March of 2022 for hemorrhagic pleural effusion-status post therapeutic tap; presented to the hospital today with a chief complaint of shortness of breath/hypoxia/COVID-19 positive. Acute severe hypoxic respiratory failure: In the setting of COVID-19 pneumonia/moderate pleural effusion.? Patient was briefly on CPAP on presentation.? Currently on high-flow nasal cannula. ogal of O2 90 o better?she is highly anxious from her not there.. continue present care.. Adjust O2 as need,Morphine for respiratory distress COVID-19 pneumonia: covid positive since 04/30 Patient is COVID-19 vaccinated with Pfizer vaccine.? persistent covid d/t immune compromised state CT scan showed patchy opacities.? Continue Zosyn and Vanco, DC Vanco if MRSA nasal screen negative per ID Continue IV Decadron no indication for Remdesevir or Baricitinib Pulmonology input noted Overall poor prognosis and will discuss RN TESTING with family Moderate pleural effusion:?Thoracentesis by IR yesterday History of diastolic CHF: Continue home Lasix.? History of hypertension:? meds on hold d/t low bp but better now History of anxiety/depression: Continue home clonidine/escitalopram History of glaucoma: Continue home latanoprost History of CLL: Continue home Acalabrutinib. History of AFib: Patient currently not on anticoagulation.? Recently discontinued at [facility] given bloody pleural effusion. DVT prophylaxis:? SCD boots.? Avoiding pharmacologic agent for now, given concerns for recent hemorrhagic pleural effusion. Code status:? DNR/DNI.? Confirmed with the patient's family at bedside. Need for inaptient acute severe hypoxic respiratory failure d/t covid requiring high oxygen, IV Abx for pneumonia Quality Stroke Does the patient have a stroke diagnosis?: No VTE Prior VTE?: No VTE Risk Level:: Medical - moderate - high VTE Device Contraindication: N/A - Device Ordered VTE Drug Contraindication: Treatment Not Indicated
[2022-05-23] MEDS: 0.9 % Sodium Chloride Flush 3 ML SYRINGE IVFLUSH (11:14)
[2022-05-23] MEDS: LORazepam 2 MG/ML VIAL 0.5 MG IVPUSH (11:14)
[2022-05-23] MEDS: Scopolamine 1.5 MG PATCH.TD.3 TRANSDERMA (11:15)
[2022-05-23 12:00] VITALS: RESP 15
[2022-05-23] MEDS: Morphine Sulfate 4 MG/ML CARTRIDGE 2 MG IVPUSH (12:45)
--- NOTE | 2022-05-23 16:02 | PC.NURSE ---
Addendum entered by Chevy Ricardo RN 05/23/22 16:43: [employer] rep name Elsie Case # [id number] Original Note: Pt found to be asystolic around 1545 while this RN was receiving report. Md was informed, family was at bedside and checked on. Donor services contacted.
--- NOTE | 2022-05-23 16:27 | PM.EVENT ---
Event Note Date of Service: 05/23/22 Event Note: Pt became unresponsive, exam: pupils dilated and fixed, no heart sounds, no long sounds, no gag reflex, no response to painful stimuli. Pronounced at 4:15 pm
--- NOTE | 2022-05-23 16:41 | P.DN_ITS ---
Discharge Sum: Prov Provider Primary care physician: Guera Oscar MD Consults: 05/20/22 21:47 Consult to Infectious Diseases Routine Consulting Provider: Zuleima Maher Reason for consultation: COVID PNA Consult to Pulmonology Routine Consulting Provider: Stan Jackson Reason for consultation: COVID pneumonia/pleural effusion/hypoxia Discharge Sum: Diag Contributing Factors (1) Pneumonia due to COVID-19 virus: (2) Acute respiratory failure with hypoxia: (3) Recurrent left pleural effusion: (4) COVID-19: Discharge Sum: Summary Date and Time Date of admission: 05/20/22 21:48 Summary Details: Chief Complaint: Shortness of breath 87-year-old female with a past medical history of hypertension, hyperlipidemia, CAD, CHF-diastolic, AFib-not on anticoagulation, SSS s/p pacemaker, moderate aortic stenosis, CKD stage 3, CLL on Acalbrutinib, anxiety, depression, asthma, recent admission to the [facility] in March of 2022 for hemorrhagic pleural effusion-status post therapeutic tap; presented to the hospital today with a chief complaint of shortness of breath. Most of the history obtained from the patient and patient's family at bedside.? Reportedly patient had an admission in March at [facility] for pleural effusion which was found to be hemorrhagic status post 1 L of pleural tap; also noted to be COVID-19 positive; patient was subsequently discharged to the rehab and from the rehab patient was discharged home yesterday.? Since she came home yesterday patient has been having shortness of breath which has been gradually worsening.? Also complaining of cough with yellow sputum production. Subsequently EMS was called in today and in the EMS had patient was noted to be saturating 70%; placed on supplemental oxygen and brought to the ER for further evaluation.? Denies any chest pain or palpitations.? Denies any nausea vomiting or diarrhea.? Review of all other systems is negative except mentioned above ER course: Per ER team patient on presentation noted to be in mild respiratory distress; placed on CPAP at low positive pressures.? Subsequently patient was transitioned to high flow nasal cannula; patient was breathing in comfortably and significantly improved respiratory status.? CT chest showed bilateral pulmonary opacities; also noted to have moderate right pleural effusion. Also mentioned that less concern for hemorrhagic bleed as patient's hemoglobin was noted to be 10.0 when she left [facility] and today her hemoglobin noted to be 9.7. Also mentioned patient has had discussions for pleurodesis at [facility] but procedure was held given comorbidities.? Hospital course: This 87 year old female with underlying multiple chronic condition including CLL, D-CHF, AFIB, rand recent diagnosis for covid presented to the ED with shortness of breath and found to have acute hypoxic respriatory failure that was severe and imaging finding consistent with Pneumonia with pa rapneumonic effusion.. She had been diagnosed with covid on around 04/30. She tested positve for covid again and CXR and CT of chest pattern was consistent with covid pneumonia.. Despite initial covid diagnosis weeks earlier, she likely still had active covid given underlying ummunosupressed state with CLL and other chronic condition, she had a rise in WBC and initial respiratory rate of up to 33 was consitent sepsis with underlying infection of pneumonia. She was initially put on BiPAP and later transitioned to high flow oxygen, given broad spec antibiotics with Zosyn and Vancomycin, and IV Steroid. Additional labs showed hyponatremia, elevated troponin I, and anemia that chronic in nature, and blood culture alter came + for pseudomonas.. Despite agresive treatment with IV, steroid, oxygen by High flow and NRB, she was unable to maintain Oxygen saturation, become more and more hypoxic.. Following discussion with family regarding goals of care today, her status was changed to comfort care only and she 5 hours later.. Family was present at the bedside. She was pronounced at 4:15 pm Final diagnoses: Acute Hypoxic respiratory failure Covid 19 pneumonia Pseudomas sepsis hemorragic pleural effusion Chronic diastolic CHF Chronic Atrial fibrilation HypOnatremia Elevated troponin I Hyperglycemia without diagnosis of diabetes Moderate aortic stenosis CLL CKD stage 3 Hard of hearing Legally blind Dementia, likely Alzheimer type HTN HLD Anxiety desorder Anemia of chronic disease Additional Data Confirmation of as documented by pronouncing clinician: no pulse, no respirations, no heart sounds, pupils fixed and dilated and other (No gag) Attending physician: Erik Rivera MD Was code activated?: No Autopsy requested?: No Organ bank notified?: Yes Hospice patient?: Yes
== END 2022-05-23 16:43 | disposition expired | DRG 177 ==
LOC: HO.ED 20:01 → HO.EDOVER 21:57 → HO.IMC 05-22 06:50
PROVIDERS: Internal Medicine; Physician Assistant; Admitting Provider Hospitalist; Emergency Provider Emergency Medicine; PCP Internal Medicine; Visit Provider Internal Medicine
DX: U07.1 COVID-19 (principal); J12.82 Pneumonia due to coronavirus disease 2019; J96.01 Acute respiratory failure with hypoxia; I13.0 Hypertensive heart and chronic kidney disease with heart failure and stage 1 through stage 4 chronic kidney disease, or unspecified chronic kidney disease; I50.32 Chronic diastolic (congestive) heart failure; C91.10 Chronic lymphocytic leukemia of B-cell type not having achieved remission; J90 Pleural effusion, not elsewhere classified; Z66 Do not resuscitate; I35.0 Nonrheumatic aortic (valve) stenosis; I49.5 Sick sinus syndrome; E78.5 Hyperlipidemia, unspecified; N18.30 Chronic kidney disease, stage 3 unspecified; I25.10 Atherosclerotic heart disease of native coronary artery without angina pectoris; H54.8 Legal blindness, as defined in USA; H40.9 Unspecified glaucoma; F41.9 Anxiety disorder, unspecified; G30.9 Alzheimer's disease, unspecified; F02.80 Dementia in other diseases classified elsewhere, unspecified severity, without behavioral disturbance, psychotic disturbance, mood disturbance, and anxiety; F32.A Depression, unspecified; I48.91 Unspecified atrial fibrillation; Z95.0 Presence of cardiac pacemaker; Z87.891 Personal history of nicotine dependence; Z91.013 Allergy to seafood; Z88.8 Allergy status to other drugs, medicaments and biological substances; Z79.899 Other long term (current) drug therapy
CPT/HCPCS: 32555; 36415; 71045; 71250; 80048; 80076; 80202; 82565; 83605; 83735; 83880; 84145; 84484; 85025; 85610; 85730; 87040; 87077; 87186; 87205; 87635; 88112; 88305; 89051; 93005; 94660; 96365; 96366; 96375; 99285; J0692; J1100; J1940; J2060; J2270; J2543; J2920; J3370; P9047